=== PATIENT | female | born 1960 | race Two or more races ===

== ENCOUNTER → 2018-09-16 | Outpatient (CLI) | payer OTHER | LOC: M RAD 10:05 | DX: M51.27 Other intervertebral disc displacement, lumbosacral region (principal); M48.061 Spinal stenosis, lumbar region without neurogenic claudication; M51.26 Other intervertebral disc displacement, lumbar region | CPT/HCPCS: 72148 ==

== ENCOUNTER → 2019-05-08 | Outpatient (REF) ==
--- NOTE | 2019-05-08 15:14 | REP ---
LUMBOSACRAL SPINE, AP AND LATERAL: AP and lateral views of the lumbosacral spine performed. There is no compression fracture. There is slight anterior listhesis of L4 on L5 due to posterior facet arthropathy. There is mild diffuse spurring. There is very mild disc space narrowing and subchondral sclerosis at L4-5. There is sclerosis and spurring at the posterior facet joints of L3-4, L4-5, and L5-S1. Posterior elements are intact. IMPRESSION: Degenerative changes as above. Electronically Signed by Thomas Molina MD 05/08/2019 04:43 P
== END ==
LOC: M SMT 13:17
PROVIDERS: ATTEND Internal Medicine
DX: M51.36 Other intervertebral disc degeneration, lumbar region (principal)

== ENCOUNTER → 2020-01-28 | Outpatient (CLI) | payer OTHER ==
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
== END ==
LOC: M PAIN 11:00
PROVIDERS: ATTEND Nurse Practitioner Family
DX: M46.1 Sacroiliitis, not elsewhere classified (principal); G89.29 Other chronic pain; E78.5 Hyperlipidemia, unspecified; E03.9 Hypothyroidism, unspecified; G47.30 Sleep apnea, unspecified; E55.9 Vitamin D deficiency, unspecified; Z87.891 Personal history of nicotine dependence; Z88.8 Allergy status to other drugs, medicaments and biological substances; Z91.040 Latex allergy status; E66.01 Morbid (severe) obesity due to excess calories; Z68.42 Body mass index [BMI] 45.0-49.9, adult; Z79.899 Other long term (current) drug therapy

== ENCOUNTER → 2020-02-07 | Outpatient (CLI) | payer OTHER ==
--- NOTE | 2020-02-07 18:55 | REPVR ---
PROCEDURE INFORMATION: Exam: MR Lumbar Spine Without Contrast. Exam date and time: 02/07/2020 6:14 PM Age: 59 years old Clinical indication: Low back pain; Additional info: Sacroiliitis, not elsewhere classified TECHNIQUE: Imaging protocol: Multiplanar magnetic resonance images of the lumbar spine without intravenous contrast. COMPARISON: MRI-Spine, L.S. without con 09/16/2018 10:22 AM FINDINGS: Vertebral body heights are maintained. No abnormal marrow signal. No cord compression. No abnormal cord signal. 0.4 cm grade 1 anterolisthesis of L4 on L5. Conus medullaris terminates at the L1 level. Paravertebral soft tissues are unremarkable. L1-L2: No significant canal or foraminal narrowing. L2-L3: No significant canal or foraminal narrowing. L3-L4: No significant canal or foraminal narrowing. L4-L5: Broad-based disc bulge and facet hypertrophy causes moderate canal narrowing with crowding of the cauda equina. Moderate right and moderate to severe left foraminal narrowing. L5-S1: Broad-based disc bulge and facet hypertrophy causes moderate canal narrowing. Mild right and moderate left foraminal narrowing. IMPRESSION: 1. No acute findings in the lumbar spine. 2. Multilevel spondylotic changes of the lumbar spine, as above. 3. Sacroiliac joints not adequately imaged on MRI lumbar spine. Given provided history of low back pain and sacroiliitis, recommend further evaluation with dedicated CT pelvis. Electronically signed by: Lalo Kern On 02/07/2020 18:54:52 PM
== END ==
LOC: M RAD 17:16
PROVIDERS: ATTEND Nurse Practitioner Family
DX: M46.1 Sacroiliitis, not elsewhere classified (principal)

== ENCOUNTER → 2020-02-14 | Outpatient (CLI) | payer OTHER ==
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
== END ==
LOC: M PAIN 10:45
PROVIDERS: ATTEND Nurse Practitioner Family
DX: M47.817 Spondylosis without myelopathy or radiculopathy, lumbosacral region (principal)

== ENCOUNTER → 2020-02-28 | Outpatient (CLI) | payer OTHER ==
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
== END ==
LOC: M PAIN 09:00
PROVIDERS: ATTEND Nurse Practitioner Family
DX: M47.817 Spondylosis without myelopathy or radiculopathy, lumbosacral region (principal); E03.9 Hypothyroidism, unspecified; E78.5 Hyperlipidemia, unspecified; Z79.899 Other long term (current) drug therapy; Z87.891 Personal history of nicotine dependence; Z88.8 Allergy status to other drugs, medicaments and biological substances; Z91.040 Latex allergy status

== ENCOUNTER → 2020-03-28 | Outpatient (CLI) | payer OTHER | LOC: M LABSMTC 11:49 | PROVIDERS: ATTEND Anesthesiology | DX: Z11.59 Encounter for screening for other viral diseases (principal); Z20.828 Contact with and (suspected) exposure to other viral communicable diseases ==

== ENCOUNTER → 2020-03-31 | Outpatient (CLI) | payer OTHER ==
[~2020-03-31] MED LIST: BUPIVACAINE HCL 0.25% 30ML VIAL As Ordered ONE; ISOVUE-M 300 61% 15ML VIAL As Ordered ONE; LIDOCAINE 1% SDV 30ML VIAL As Ordered ONE
--- NOTE | 2020-03-31 11:16 | REP ---
Partial lumbar spine series: Two views . History: Injection procedure for pain. 56 seconds of fluoroscopy time is reported. Findings: A sequence of two fluoroscopically obtained last image hold procedural spot radiographs of the lumbar spine document needle position and contrast injection associated with injection procedure. Electronically Signed by Cam Boyd MD 03/31/2020 11:08 A
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
== END ==
LOC: M PAIN 09:45
PROVIDERS: ATTEND Anesthesiology
DX: M47.816 Spondylosis without myelopathy or radiculopathy, lumbar region (principal); M47.817 Spondylosis without myelopathy or radiculopathy, lumbosacral region; E03.9 Hypothyroidism, unspecified; G47.30 Sleep apnea, unspecified; E55.9 Vitamin D deficiency, unspecified; Z87.891 Personal history of nicotine dependence; Z88.8 Allergy status to other drugs, medicaments and biological substances; Z91.040 Latex allergy status; E66.01 Morbid (severe) obesity due to excess calories; Z68.42 Body mass index [BMI] 45.0-49.9, adult; Z79.899 Other long term (current) drug therapy
CPT/HCPCS: 64493; 64494; Q9967

== ENCOUNTER → 2020-04-17 | Outpatient (CLI) | payer OTHER ==
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
== END ==
LOC: M PAIN 11:30
PROVIDERS: ATTEND Nurse Practitioner Family
DX: M47.817 Spondylosis without myelopathy or radiculopathy, lumbosacral region (principal)

== ENCOUNTER → 2021-01-07 | Outpatient (CLI) | payer OTHER ==
--- NOTE | 2021-01-07 18:31 | REP ---
INDICATION: MENISCUS DERANGEMENT RT KNEE. COMPARISON: None. TECHNIQUE: Coronal and sagittal PD and fat suppressed T2 with axial fat-suppressed T2. FINDINGS: Both the ACL and PCL are grossly intact. A transverse meniscal ligament of Cedillo seen and normal. Some fluid in the intercondylar notch. There is some hyperintense T2 signal posterior to the posterior horn and deep to the capsule the medial meniscus the representing meniscocapsular injury. There is some oblique grade 2 signal posterior horn not definitely extending to an articular surface. Anterior horn was grossly intact. I do not see evidence of a loose body in the medial compartment. There is chondromalacia with grade 2 changes on both sides of the joint. No bone bruise the femoral condyle. Subchondral cystic change in some edema posteriorly in the medial tibial plateau subjacent to the attachment of the PCL. The MCL grossly intact there is no popliteal fossa cyst. Medial patellar retinaculum grossly intact. Trace fluid in the bursa deep to the retinaculum about the medial femoral condyle. Lateral meniscus shows no evidence of a tear. I see no loose body in the lateral joint compartment. Popliteus tendon was unremarkable. Some mild chondromalacia in the lateral compartment grade 1 femoral condyle grade 1-2 tibial plateau. LCL grossly intact. Lateral patellofemoral ligament intact. Some fluid in the bursal recess deep to the ligament. There is chondromalacia patella grade 2 lateral facet, grade 2-3 medial facet. Small amount of fluid in the patellofemoral joint without a significant suprapatellar bursal fluid collection. There is a tiny hypointense focus in that fluid collection about the medial patellofemoral joint seen on axial image 21 and sagittal T2 image 15, likely a small cartilaginous loose body. Tiny patellar subchondral bruise or edema on the lateral articular facet side. Quadriceps and patellar tendons intact there is some prepatellar subcutaneous edema extending along the patellar tendon to the tibial tubercle. Subcutaneous edema seen coral circumferentially about the anterior knee. IMPRESSION: 1. Meniscocapsular injury posterior horn medial meniscus with some grade 2 signal posterior horn not definitely extending to an articular surface. No definite tear or loose body otherwise. 2. Lateral meniscus intact. There is chondromalacia of all 3 compartments as described. 3. Small amount of joint fluid. A suspected small chondral loose body projects in the medial articular facet aspect of the patellofemoral joint. 4. Cruciate ligaments, collateral ligamentous complexes, medial and lateral patellofemoral ligaments all grossly intact. No definite fracture. <Electronically signed by Sebastian Booth > 01/07/21 [id number]
== END ==
LOC: M RAD 16:18
PROVIDERS: ATTEND Family Medicine
DX: M23.331 Other meniscus derangements, other medial meniscus, right knee (principal)

== ENCOUNTER → 2021-01-15 | Outpatient (CLI) | payer OTHER ==
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
== END ==
LOC: M PAIN 13:30
PROVIDERS: ATTEND Nurse Practitioner Family
DX: M47.817 Spondylosis without myelopathy or radiculopathy, lumbosacral region (principal); G89.29 Other chronic pain; E03.9 Hypothyroidism, unspecified; G47.30 Sleep apnea, unspecified; E55.9 Vitamin D deficiency, unspecified; Z87.891 Personal history of nicotine dependence; Z88.8 Allergy status to other drugs, medicaments and biological substances; Z91.040 Latex allergy status; E66.01 Morbid (severe) obesity due to excess calories; Z68.42 Body mass index [BMI] 45.0-49.9, adult; Z79.899 Other long term (current) drug therapy

== ENCOUNTER → 2021-02-26 | Outpatient (CLI) | payer OTHER ==
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
== END ==
LOC: M PAIN 11:15
PROVIDERS: ATTEND Nurse Practitioner Family
DX: M48.062 Spinal stenosis, lumbar region with neurogenic claudication (principal); E03.9 Hypothyroidism, unspecified; G47.30 Sleep apnea, unspecified; E55.9 Vitamin D deficiency, unspecified; Z87.891 Personal history of nicotine dependence; Z88.8 Allergy status to other drugs, medicaments and biological substances; Z91.040 Latex allergy status; E66.01 Morbid (severe) obesity due to excess calories; Z68.42 Body mass index [BMI] 45.0-49.9, adult; Z79.899 Other long term (current) drug therapy

== ENCOUNTER → 2021-03-09 | Outpatient (CLI) | payer OTHER ==
--- NOTE | 2021-03-09 18:01 | REP ---
INDICATION: DORSALGIA, UNSPECIFIED, LAB 1ST THEN XR. COMPARISON: None. TECHNIQUE: Single AP view of the pelvis. FINDINGS: The pelvis and hip joints demonstrate relatively symmetric age-related degenerative changes. Enthesopathy along the pelvic rim is noted. Hip joints demonstrate increased sclerosis to the acetabula with mild joint space narrowing. No acute fracture or dislocation. Surrounding soft tissues are normal. 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 <Electronically signed by Truong Deng > 03/09/21 [id number]
[2021-03-09 19:06] LABS: CPK CREATINE PHOSPHOKINASE 65 U/L (26-192); IRON (FE) 61 UG/DL (50-170); MAGNESIUM LEVEL 2.1 MG/DL (1.8-2.4); PHOSPHORUS LEVEL 3.3 MG/DL (2.5-4.9); RHEUMATOID FACTOR QUANT < 10.0 IU/ML (<15.0)
[2021-03-10 10:39] LABS: VITAMIN B12 LEVEL 779 PG/ML (247-911)
[2021-03-14 00:10] LABS: ANA (HEP2) Positive (.); CYCLIC CITRULLINATED PEPTIDE 6 units (0-19); HLA-B27 Negative (.)
== END ==
LOC: M LAB 17:24
PROVIDERS: ATTEND Internal Medicine
DX: M54.9 Dorsalgia, unspecified (principal)

== ENCOUNTER → 2021-03-12 | Outpatient (CLI) | payer OTHER ==
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
== END ==
LOC: M PAIN 15:15
PROVIDERS: ATTEND Anesthesiology
DX: M79.18 Myalgia, other site (principal); M54.5 Low back pain; E03.9 Hypothyroidism, unspecified; G47.30 Sleep apnea, unspecified; E55.9 Vitamin D deficiency, unspecified; Z87.891 Personal history of nicotine dependence; Z88.8 Allergy status to other drugs, medicaments and biological substances; Z91.040 Latex allergy status; E66.01 Morbid (severe) obesity due to excess calories; Z68.42 Body mass index [BMI] 45.0-49.9, adult; Z79.899 Other long term (current) drug therapy

== ENCOUNTER → 2021-03-26 | Outpatient (CLI) | payer OTHER | LOC: M LABSMTC 11:32 | PROVIDERS: ATTEND Anesthesiology | DX: Z11.52 Encounter for screening for COVID-19 (principal) ==

== ENCOUNTER → 2021-03-31 | Outpatient (CLI) | payer OTHER ==
[~2021-03-31] MED LIST changes: +ASPE16CR TOP; +ATOR1TAB21 PO; +BUPIVACAINE HCL 0.25% 10ML VIAL As Ordered ONE; +DICL1GEL3 TOP; +HYDR-4517 PO; +IBUP80TA PO; -ISOVUE-M 300 61% 15ML VIAL As Ordered ONE; +LEVO150T7 PO; +LEVO25TA5 PO; -LIDOCAINE 1% SDV 30ML VIAL As Ordered ONE; +NORCO, ANEXSIA 5/325MG TABLET (HYDROcodone/ACETAMINOPHEN) As Ordered ONE; +TIZA2TA PO; +TRIAMCINOLONE ACETONIDE SUSP 40 MG/ML VIAL (J3301) As Ordered ONE; +VENL150C43 PO; +VITA50005 PO; +diazePAM 5MG TABLET As Ordered ONE
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
== END ==
LOC: M PAIN 10:40
PROVIDERS: ATTEND Anesthesiology
DX: M79.10 Myalgia, unspecified site (principal); G47.30 Sleep apnea, unspecified; E03.9 Hypothyroidism, unspecified; E55.9 Vitamin D deficiency, unspecified; Z87.891 Personal history of nicotine dependence; Z88.8 Allergy status to other drugs, medicaments and biological substances; Z91.040 Latex allergy status; E66.01 Morbid (severe) obesity due to excess calories; Z68.42 Body mass index [BMI] 45.0-49.9, adult; Z79.899 Other long term (current) drug therapy
CPT/HCPCS: 20552; J3301

== ENCOUNTER 2021-04-04 14:14 | Inpatient (IN) | payer OTHER ==
[~2021-04-04] VITALS: Ht 162.6 cm; Wt 109.2 kg
[2021-04-04] MEDS ORDERED: TIZA2TA PO (14:51)
[2021-04-04] MEDS ORDERED: LEVO150T7 PO (14:51)
[2021-04-04] MEDS ORDERED: HYDR-4517 PO (14:51)
[2021-04-04] MEDS ORDERED: DICL1GEL3 TOP (14:51)
[2021-04-04] MEDS ORDERED: LEVO25TA5 PO (14:51)
[2021-04-04] MEDS ORDERED: VENL150C43 PO (14:51)
[2021-04-04] MEDS ORDERED: IBUP80TA PO (14:51)
[2021-04-04] MEDS ORDERED: ATOR1TAB21 PO (14:51)
[2021-04-04] MEDS ORDERED: ASPE16CR TOP (14:51)
[2021-04-04] MEDS ORDERED: VITA50005 PO (14:51)
[2021-04-04] MEDS ORDERED: NS 1,000 ML IV ONE ×2 (15:15→20:30)
[2021-04-04] MEDS ORDERED: ACETAMINOPHEN 500 MG TAB PO ONE (15:40)
--- NOTE | 2021-04-04 15:55 | REP ---
INDICATION: fever, cough. COMPARISON: None. TECHNIQUE: Single portable AP view of the chest was performed. FINDINGS: There is cardiomegaly. There is vascular congestion. There are diffuse bilateral infiltrates. The findings are most consistent with CHF and pulmonary edema. Superimposed pneumonia is not excluded. There are degenerative changes of the spine. IMPRESSION: Cardiomegaly and vascular congestion. Diffuse bilateral infiltrates are presenting pulmonary edema and/ or pneumonic infiltrate. <Electronically signed by Thomas Molina > 04/04/21 0473
[2021-04-04 16:27] LABS: HEMATOCRIT 46.9 % (36.0-47.0); HEMOGLOBIN 15.5 g/dl (12.0-15.5); MEAN CORPUSCULAR HEMOGLOBIN 27.2 pg (27.0-33.0); MEAN CORPUSCULAR VOLUME 82.3 fl (80.0-96.0); PLATELET COUNT, AUTOMATED 141 10^3/uL (150-450); WHITE BLOOD COUNT 7.4 10^3/uL (4.0-10.0)
[2021-04-04 16:39] LABS: INR 1.13; PROTHROMBIN TIME 14.8 SECONDS (12.5-14.3)
[2021-04-04 16:40] LABS: PARTIAL THROMBOPLASTIN TIME 32.7 SECONDS (24.2-38.5)
[2021-04-04 16:42] LABS: D-DIMER QUANT 2940.17 ng/ml (<500)
[2021-04-04 16:55] LABS: ALBUMIN 2.6 GM/DL (3.2-5.2); ALT/SGPT 31 U/L (12-78); BILIRUBIN,DIRECT 0.2 MG/DL (0.0-0.2); BILIRUBIN,TOTAL 0.7 MG/DL (0.2-1.0); BLOOD UREA NITROGEN 22 MG/DL (7-18); CALCIUM LEVEL 8.3 MG/DL (8.8-10.2); CARBON DIOXIDE LEVEL 26 MEQ/L (21-32); CHLORIDE LEVEL 100 MEQ/L (98-107); CK-MB VALUE MASS < 1.0 NG/ML (<3.6); CPK CREATINE PHOSPHOKINASE 124 U/L (26-192); CREATININE FOR GFR 0.89 MG/DL (0.55-1.30); FERRITIN 1466 NG/ML (8-252); GLOMERULAR FILTRATION RATE > 60.0 (>45); GLUCOSE, FASTING 106 MG/DL (70-100); LDH LACTATE DEHYDROGENASE 737 U/L (84-246); LIPASE 433 U/L (73-393); MB/CK RELATIVE INDEX 0.81 (< OR =4); NT-PRO BNP 735 PG/ML (<125); POTASSIUM SERUM 4.1 MEQ/L (3.5-5.1); SODIUM LEVEL 133 MEQ/L (136-145); TOTAL PROTEIN 7.1 GM/DL (6.4-8.2); TROPONIN I < 0.02 NG/ML (< 0.10)
[2021-04-04] MEDS ORDERED: AZITHROMYCIN INJ 500 MG, VIAL MATE ADAPTER 1 EACH in NS 250 ML IV ONE (17:00)
[2021-04-04] MEDS ORDERED: cefTRIAXone SOD 2 GM in D5W MINI-BAG PLUS 50 ML IV ONE (17:00)
[2021-04-04] MEDS ORDERED: ISOVUE-370 76% 100ML VIAL As Ordered ONE (17:06)
[2021-04-04 17:07] LABS: LYMPHOCYTES 12 % (16-44); MONOCYTES 3 % (0-5); NEUTROPHILS 85 % (28-66)
[2021-04-04 17:09] LABS: PLATELET ESTIMATE DECREASED (NORMAL)
--- NOTE | 2021-04-04 17:59 | REPVR ---
PROCEDURE INFORMATION: Exam: CT Lumbar Spine Without Contrast Exam date and time: 04/04/2021 5:21 PM Age: 61 years old Clinical indication: Low back pain and sciatica; Additional info: Chronic low back pain/sciatica, reported urinary incontinenc TECHNIQUE: Imaging protocol: Computed tomography images of the lumbar spine without contrast. Radiation optimization: All CT scans at this facility use at least one of these dose optimization techniques: automated exposure control; mA and/or kV adjustment per patient size (includes targeted exams where dose is matched to clinical indication); or iterative reconstruction. COMPARISON: MRI-Spine, L.S. without con 02/07/2020 5:41 PM FINDINGS: Vertebrae: Degenerative disc disease and facet arthrosis throughout the lumbar spine. No fracture. L1-L2: No significant disc protrusion. No severe spinal canal stenosis. No significant neural foraminal narrowing. L2-L3: Mild degenerative disc disease and facet arthrosis. No disc herniation or spinal stenosis identified. L3-L4: Posterior broad-based disc protrusion and bilateral facet hypertrophy resulting in mild spinal stenosis. L4-L5: Grade 1 anterolisthesis of L4. Posterior broad-based disc protrusion and bilateral facet hypertrophy. Mild to moderate spinal stenosis. Bilateral lateral recess stenosis. L5-S1: Mild degenerative disc disease and facet arthrosis. No disc herniation or spinal stenosis identified. Lungs: Patchy bibasilar lung opacities, indeterminate. Vasculature: Mild atherosclerosis of the abdominal aorta and iliac arteries. No aneurysm. Soft tissues: Unremarkable. IMPRESSION: 1. Patchy bibasilar lung opacities, indeterminate. 2. Degenerative spondylosis of the lumbar spine. 3. Mild spinal stenosis at L3-L4 and mild to moderate spinal stenosis at L4-L5. If there is a continued clinical concern for disc herniation or other spinal canal abnormality then consider further evaluation with MRI. Electronically signed by: Wyatt Cifuentes On 04/04/2021 17:58:46 PM
--- NOTE | 2021-04-04 18:07 | REPVR ---
PROCEDURE INFORMATION: Exam: CTA Chest With Contrast Exam date and time: 04/04/2021 5:21 PM Age: 61 years old Clinical indication: Other: Positive d-dimer R/O pe, positive covid TECHNIQUE: Imaging protocol: Computed tomographic angiography of the chest with contrast. 3D rendering (Not supervised by radiologist): MIP and/or 3D reconstructed images were created by the technologist. Radiation optimization: All CT scans at this facility use at least one of these dose optimization techniques: automated exposure control; mA and/or kV adjustment per patient size (includes targeted exams where dose is matched to clinical indication); or iterative reconstruction. Contrast material: ISOVUE 370; Contrast volume: 75 ml; Contrast route: INTRAVENOUS (IV); COMPARISON: [facility] PORTABLE CHEST X-RAY 04/04/2021 3:44 PM FINDINGS: Limitations: Evaluation of the peripheral pulmonary vasculature is suboptimal secondary to motion induced image degradation. Pulmonary arteries: No filling defects are identified within the main pulmonary trunk, right or left main pulmonary arteries or central lobar arteries to indicate pulmonary embolus. Aorta: Mild atherosclerosis of the thoracic aorta without aneurysm or dissection. Lungs: There are peripheral bilateral ground-glass opacities with areas of consolidation and interlobular lines which are commonly reported imaging features of COVID-19 pneumonia. Other underlying parenchymal lesions are not excluded. Follow-up imaging is recommended to confirm resolution. Pleural spaces: Unremarkable. No pneumothorax. No pleural effusion. Heart: Mild coronary atherosclerosis. Lymph nodes: Unremarkable. No enlarged lymph nodes. Bones/joints: Degenerative spondylosis of the thoracic spine. No fracture. Soft tissues: Unremarkable. IMPRESSION: 1. No pulmonary embolism identified within the main pulmonary trunk, right or left main pulmonary arteries or central lobar arteries. 2. Commonly reported imaging features of COVID-19 pneumonia are present. Other processes such as influenza pneumonia and organizing pneumonia, as can be seen with drug toxicity and connective tissue disease, can cause a similar imaging pattern. Other underlying parenchymal lesions are not excluded. Follow-up imaging is recommended to confirm resolution. REFERENCES: [place] Ordonez et al., Radiological Society of [place] Expert Consensus Statement on Reporting Chest CT Findings Related to COVID-19. Endorsed by the Society of Thoracic Radiology, the [employer], and [employer]NA. Published February 13, 2020. Electronically signed by: Wyatt Cifuentes On 04/04/2021 18:07:10 PM
[2021-04-04] MEDS ORDERED: PERCOCET 5MG/325MG TAB PO ONE (18:50)
--- NOTE | 2021-04-04 20:11 | REPVR ---
PROCEDURE INFORMATION: Exam: MR Lumbar Spine Without Contrast Exam date and time: 04/04/2021 7:29 PM Age: 61 years old Clinical indication: Lumbago and weakness; Low back pain and other: Incontinence; Additional info: Chronic back pain, reported incontinence TECHNIQUE: Imaging protocol: Multiplanar magnetic resonance images of the lumbar spine without intravenous contrast. COMPARISON: MRI-Spine, L.S. without con 02/07/2020 5:41 PM FINDINGS: Vertebrae: Hemangioma within the L1 vertebral body. No fracture. Spinal cord: The lower thoracic cord is unremarkable and the conus terminates at the level of the L1 inferior endplate. L1-L2: No significant disc disease. No significant spinal canal stenosis. No neural foraminal stenosis. L2-L3: No significant disc disease. No significant spinal canal stenosis. No neural foraminal stenosis. L3-L4: Mild posterior broad-based disc protrusion. Bilateral facet hypertrophy and ligamentum flavum thickening. No focal disc protrusion or nerve root impingement. Mild spinal stenosis. Bilateral lateral recess stenosis. L4-L5: Grade 1 anterolisthesis of L4. Mild posterior broad-based disc protrusion. Bilateral facet hypertrophy and ligamentum flavum thickening. No focal disc protrusion. Mild spinal stenosis. Bilateral lateral recess stenosis. L5-S1: No disc herniation. Bilateral facet hypertrophy, worse on the right. No nerve root impingement or spinal stenosis. Soft tissues: Unremarkable. IMPRESSION: Degenerative spondylosis of the lumbar spine as described above. Electronically signed by: Wyatt Cifuentes On 04/04/2021 20:10:46 PM
[2021-04-04] MEDS ORDERED: LIDOCAINE 4% CREAM 5GM (LMX4) TOP PRN (20:30)
[2021-04-04] MEDS ORDERED: DICLOFENAC EPOLAMINE 1.3 % PATCH TOP PRN (20:30)
[2021-04-04] MEDS ORDERED: ONDANSETRON 4 MG TAB PO PRN (20:30)
[2021-04-04] MEDS ORDERED: PILL CUTTER 1 EACH XX PRN (21:50)
--- NOTE | 2021-04-04 21:51 | HPEPDOC ---
[facility] Medical History & Physical Date of Admission April 04, 2021 Date of Service: April 04, 2021 Attending Physician: NURA PÉREZ MD History and Physical CHIEF COMPLAINT: [61 y/o female with a cc of extreme fatigue x1 week] HISTORY OF PRESENT ILLNESS: [This is a 61 y/o female with a pmh of chronic danny k/leg pain, hld, hypothyroidism and ced who presents to the ED after developing acute onset weakness that has gradually worsened over one week. patient states that she started to feel ill about a week ago with general malaise and fatigue that has gotten steadily worse. Over the course of the past week, she has subsequently developed some mild sob, cough, fevers and chills. Patient also states that she has had episodes of urinary incontinence without burning or hematuria. This is new for patient and was concerning. Patient states that she "feels terrible." Patient also complains of continued lower back pain that she states is no worse today than it has been over the past few weeks but is still severe in nature. Patient recently underwent corticosteroid joint injections in her spine with pain management. Patient denies chest pain, hemoptysis, cough with sputum, n/v/d/c, calf pain, peripheral edema, rash. Patient found to be COVID19 + in our ed as well as have evidence of pneumonia/vascular congestion on xray, and have positive UA] PAST MEDICAL HISTORY: 1. [See HPI PAST SURGICAL HISTORY: 1. [Extensive left lower leg reconstruction]. SOCIAL HISTORY: Tobacco use:[Denies] ETOH: [Denies] Illicit drug use: [denies] FAMILY HISTORY: Reviewed - none pertinent ALLERGIES: Please see below. REVIEW OF SYSTEMS: CONSTITUTIONAL: [See HPI]. HEENT: [See HPI]. CARDIOVASCULAR: [See HPI]. RESPIRATORY: [See HPI]. GASTROINTESTINAL: [See HPI]. GENITOURINARY: [See HPI]. SKIN: [Denies rash]. MUSCULOSKELETAL: [See HPI]. NEUROLOGICAL: [Denies paresthesias]. ENDOCRINE: [Denies hx of DM]. HEMATOLOGIC/LYMPHATIC: [Denies easy bruising]. HOME MEDICATIONS: Please see below. PHYSICAL EXAMINATION: VITAL SIGNS: Please see below GENERAL APPEARANCE: [This is an obese 61 y/o female. She is laying in bed and appears to have mild increased work of breathing]. HEENT: [No mass or lesion. EOMI. No scleral icterus, conjunctival erythema. Nares patent. Oral mucosa dry without erythema.]. CARDIOVASCULAR: [Regular rate, rhythm. No murmurs, rubs gallops]. LUNGS: [Decreased breath sounds b/l]. ABDOMEN: [Soft, nontender]. MUSCULOSKELETAL: [No joint deformity]. EXTREMITIES: [No peripheral edema noted. No overlying skin changes. Pulses intact.]. NEUROLOGICAL: [Sensation intact. Speech clear. A+Ox3. No focal deficits]. PSYCHIATRIC: [Mood appropriate. Flat affect.]. LABORATORY DATA: See below. IMAGING: [Chest xray: FINDINGS: There is cardiomegaly. There is vascular congestion. There are diffuse bilateral infiltrates. The findings are most consistent with CHF and pulmonary edema. Superimposed pneumonia is not excluded. There are degenerative changes of the spine. IMPRESSION: Cardiomegaly and vascular congestion. Diffuse bilateral infiltrates are presenting pulmonary edema and/ or pneumonic infiltrate. Lumbar spine CT: FINDINGS: Vertebrae: Degenerative disc disease and facet arthrosis throughout the lumbar spine. No fracture. L1-L2: No significant disc protrusion. No severe spinal canal stenosis. No significant neural foraminal narrowing. L2-L3: Mild degenerative disc disease and facet arthrosis. No disc herniation or spinal stenosis identified. L3-L4: Posterior broad-based disc protrusion and bilateral facet hypertrophy resulting in mild spinal stenosis. L4-L5: Grade 1 anterolisthesis of L4. Posterior broad-based disc protrusion and bilateral facet hypertrophy. Mild to moderate spinal stenosis. Bilateral lateral recess stenosis. L5-S1: Mild degenerative disc disease and facet arthrosis. No disc herniation or spinal stenosis identified. Lungs: Patchy bibasilar lung opacities, indeterminate. Vasculature: Mild atherosclerosis of the abdominal aorta and iliac arteries. No aneurysm. Soft tissues: Unremarkable. IMPRESSION: 1. Patchy bibasilar lung opacities, indeterminate. 2. Degenerative spondylosis of the lumbar spine. 3. Mild spinal stenosis at L3-L4 and mild to moderate spinal stenosis at L4-L5. If there is a continued clinical concern for disc herniation or other spinal canal abnormality then consider further evaluation with MRI. CT angio chest: FINDINGS: Limitations: Evaluation of the peripheral pulmonary vasculature is suboptimal secondary to motion induced image degradation. Pulmonary arteries: No filling defects are identified within the main pulmonary trunk, right or left main pulmonary arteries or central lobar arteries to indicate pulmonary embolus. Aorta: Mild atherosclerosis of the thoracic aorta without aneurysm or dissection. Lungs: There are peripheral bilateral ground-glass opacities with areas of consolidation and interlobular lines which are commonly reported imaging features of COVID-19 pneumonia. Other underlying parenchymal lesions are not excluded. Follow-up imaging is recommended to confirm resolution. Pleural spaces: Unremarkable. No pneumothorax. No pleural effusion. Heart: Mild coronary atherosclerosis. Lymph nodes: Unremarkable. No enlarged lymph nodes. Bones/joints: Degenerative spondylosis of the thoracic spine. No fracture. Soft tissues: Unremarkable. IMPRESSION: 1. No pulmonary embolism identified within the main pulmonary trunk, right or left main pulmonary arteries or central lobar arteries. 2. Commonly reported imaging features of COVID-19 pneumonia are present. Other processes such as influenza pneumonia and organizing pneumonia, as can be seen with drug toxicity and connective tissue disease, can cause a similar imaging pattern. Other underlying parenchymal lesions are not excluded. Follow-up imaging is recommended to confirm resolution. MRI lumbar spine: FINDINGS: Vertebrae: Hemangioma within the L1 vertebral body. No fracture. Spinal cord: The lower thoracic cord is unremarkable and the conus terminates at the level of the L1 inferior endplate. L1-L2: No significant disc disease. No significant spinal canal stenosis. No neural foraminal stenosis. L2-L3: No significant disc disease. No significant spinal canal stenosis. No neural foraminal stenosis. L3-L4: Mild posterior broad-based disc protrusion. Bilateral facet hypertrophy and ligamentum flavum thickening. No focal disc protrusion or nerve root impingement. Mild spinal stenosis. Bilateral lateral recess stenosis. L4-L5: Grade 1 anterolisthesis of L4. Mild posterior broad-based disc protrusion. Bilateral facet hypertrophy and ligamentum flavum thickening. No focal disc protrusion. Mild spinal stenosis. Bilateral lateral recess stenosis. L5-S1: No disc herniation. Bilateral facet hypertrophy, worse on the right. No nerve root impingement or spinal stenosis. Soft tissues: Unremarkable. IMPRESSION: Degenerative spondylosis of the lumbar spine as described above. ] MICROBIOLOGY: Please see below. ASSESSMENT: [This is a 61 y/o female with a pmh of chronic back/leg pain, hld, hypothyroidism and ced who presents to the ED after developing acute onset weakness that has gradually worsened over one week. Patient found to be covid+ in our emergency department. Patient was also worked up in our ed for possible spinal syndrome due to severe back pain and urinary incontinence, but this was found to be negative.]. . PLAN: 1. [COVID 19 - Patient meets sepsis criteria upon presentation with fever (103.4 max), hypoxia (88% on RA at rest) and present source of infection. - Will begin remdesevir, decadron iv daily - Patient received one dose of azithromycin and rocephin, 1L saline bolus in the ed - Will continue ivf on the floor. patient likely dehydrated due to recent poor oral intake - trend inflammatory markers - provide supplemental o2 with goal of sat >90% - combivent, incentive spirometry for sx relief - tylenol/ibuprofen for fevers - admit to med surg under obs 2. UTI - Patient had positive UA. Denies dysuria, but admits to incontinence. Incontin ence likely a symptoms of uti in this case. - Patient received 2g ceftriaxone in the ED 3. CED - CPAP nightly 4. Chronic pain - Continue percocet, ibuprofen, diclofenac, lidocaine, zanaflex 5. HLD - continue lipitor 6. Hypothyroidism - continue levothyroxine 7. Depression - continue effexor DVT prophylaxis - Lovenox ordered]. Vital Signs Vital Signs Date Time Temp Pulse Resp B/P (MAP) Pulse Ox O2 Delivery O2 Flow Rate FiO2 04/04/21 20:23 97.5 04/04/21 20:00 20 Room Air 04/04/21 19:02 55 121/55 (77) 91 1.0 Laboratory Data Labs 24H Laboratory Tests 2 04/04/21 16:11: Neutrophils (%) (Auto) , Nucleated Red Blood Cells % (auto) 0.0, Neutrophils 85H, Lymphocytes (Manual) 12L, Monocytes (Manual) 3, Platelet Estimate DECREASED, Prothrombin Time 14.8H, Prothromb Time International Ratio 1.13, Activated Partial Thromboplast Time 32.7, D-Dimer, Quantitative 2940.17H, Anion Gap 7L, Glomerular Filtration Rate > 60.0, Lactic Acid Level 1.9, Calcium Level 8.3L, Ferritin 1466H, Total Bilirubin 0.7, Direct Bilirubin 0.2, Aspartate Amino Transf (AST/SGOT) 65H, Alanine Aminotransferase (ALT/SGPT) 31, Alkaline Phosphatase 73, Lactate Dehydrogenase 737H, Total Creatine Kinase 124, Creatine Kinase MB < 1.0, Creatine Kinase MB Relative Index 0.81, Troponin I < 0.02, C-Reactive Protein, Quantitative 15.20H, ES-Yef-J-Type Natriuretic Peptide 735H, Total Protein 7.1, Albumin 2.6L, Albumin/Globulin Ratio 0.6L, Lipase 433H 04/04/21 17:41: Urine Color YELLOW, Urine Appearance CLOUDYH, Urine pH 6.0, Urine Specific [place] 1.032, Urine Protein 3+H, Urine Glucose (UA) NEGATIVE, Urine Ketones NEGATIVE, Urine Blood 1+H, Urine Nitrite POSITIVEH, Urine Bilirubin NEGATIVE, Urine Urobilinogen 0.2, Urine Leukocyte Esterase NEGATIVE, Urine WBC (Auto) 28H, Urine RBC (Auto) 3, Urine Hyaline Casts (Auto) 8, Urine Bacteria (Auto) 2+H, Urine Squamous Epithelial Cells 4, Urine Transitional Epithelial Cells <1, Urine Mucus (Auto) LARGE, Urine Sperm (Auto) CBC/BMP Laboratory Tests 04/04/21 16:11 Microbiology Microbiology 04/04/21 Urine Culture, Received Pending 04/04/21 Blood Culture, Received Pending 04/04/21 Blood Culture, Received Pending 04/04/21 Respiratory Virus Panel (PCR) ([facility]) - Final, Complete SARS-CoV-2 (COVID 19) Home Medications Scheduled Atorvastatin Calcium (Atorvastatin Calcium) 20 Mg Tablet, 20 MG PO DAILY Ergocalciferol (Vitamin D2) (Vitamin D2) 50,000 Units Cap, 1 CAP PO 1XWK SUNDAYS Levothyroxine Sodium (Levothyroxine Sodium) 150 Mcg Tablet, 150 MCG PO DAILY Levothyroxine Sodium (Levothyroxine Sodium) 25 Mcg Tablet, 25 MCG PO DAILY Venlafaxine HCl (Venlafaxine HCl ER) 150 Mg Cap.er.24h, 150 MG PO DAILY Scheduled PRN Diclofenac Sodium (Diclofenac Sodium) 1% 100GM Gel..gram., 1 DOSE TOP PRN PRN for PAIN USE FOR KNEE PAIN Hydrocodone/Acetaminophen (Hydrocodone-Acetamin 10-325 mg) 1 Each Tablet, 1 TAB PO QID PRN for PAIN Ibuprofen (Ibuprofen) 800 Mg Tablet, 800 MG PO TID PRN for PAIN Lidocaine HCl (Aspercreme) 4% Cream..g., 1 DOSE TOP PRN PRN for PAIN Tizanidine HCl (Tizanidine HCl) 2 Mg Tablet, 2 MG PO BID PRN for MUSCLE SPASMS Allergies Coded Allergies: No Known Allergies (Unverified , 04/04/21) A-FIB/CHADSVASC A-FIB History Current/History of A-Fib/PAF?: No Attending Note Attending Note time of service 906pm Ms. Felder is a 61 yr old w hypothyroidism, CED, obesity (which complicates her care) & sciatica who presented w c/o URI symptoms & weakness and will be admitted for #acute hypoxemic vapotherm dependent respiratory failure #viral sepsis # COVID 19 Pneumonia # Class 3 obesity We will treat her for the above & check her A1C. She should be referred to a Bariatric surgeon on an out patient basis. rest per MARY JANE Godfrey's H&P GEORGI GODFREY April 04, 2021 21:51 NURA PÉREZ MD April 04, 2021 23:19
[2021-04-04] MEDS ORDERED: REMDESIVIR 200 MG in NS 250 ML IV ONE (22:00)
[2021-04-04 22:10] VITALS: BP 103/51; O2SAT 92
[2021-04-04 23:00] VITALS: O2SAT 94
[2021-04-05] VITALS (18 sets, daily range): BP systolic 93–155; BP diastolic 52–90; O2SAT 92–95
[2021-04-05] MEDS ORDERED: SODIUM CHLORIDE 0.9% INJ 10 ML SYR IV ONE
[2021-04-05] MEDS: LEVOTHYROXINE 25MCG TABLET (0.025MG) PO SCH (05:54)
[2021-04-05] MEDS: LEVOTHYROXINE 150MCG TABLET (0.15MG) PO SCH (05:54)
[2021-04-05 07:04] LABS: HEMATOCRIT 44.6 % (36.0-47.0); HEMOGLOBIN 14.8 g/dl (12.0-15.5); MEAN CORPUSCULAR HEMOGLOBIN 27.8 pg (27.0-33.0); MEAN CORPUSCULAR HGB CONC 33.2 g/dl (32.0-36.5); MEAN CORPUSCULAR VOLUME 83.7 fl (80.0-96.0); PLATELET COUNT, AUTOMATED 152 10^3/uL (150-450); RED BLOOD COUNT 5.33 10^6/uL (4.00-5.40); WHITE BLOOD COUNT 6.4 10^3/uL (4.0-10.0)
[2021-04-05] MEDS: PERCOCET 5MG/325MG TAB PO PRN ×2 (07:04→20:02)
[2021-04-05] MEDS: ENOXAPARIN 60MG/0.6ML SYRINGE (J1650 PER 10MG) SC SCH ×2 (07:04→17:10)
[2021-04-05 07:22] LABS: HEMOGLOBIN A1c 6.5 %
[2021-04-05 07:27] LABS: BLOOD UREA NITROGEN 20 MG/DL (7-18); CARBON DIOXIDE LEVEL 25 MEQ/L (21-32); CHLORIDE LEVEL 102 MEQ/L (98-107); GLOMERULAR FILTRATION RATE > 60.0 (>45); GLUCOSE, FASTING 108 MG/DL (70-100); POTASSIUM SERUM 4.1 MEQ/L (3.5-5.1); SODIUM LEVEL 136 MEQ/L (136-145)
--- NOTE | 2021-04-05 07:55 | ECGEPIP ---
[facility] - ED Test Date: 2021-04-04 Pat Name: JOY CASTELLON Department: Room: - Gender: Female Carroter: LR : 1960 Requested By: LINDY Ramos PA-C Order Number: [id number] Reading MD: Ni Lakhani Measurements Intervals [place] Rate: 69 P: [place]: 130 QRS: 15 QRSD: 74 T: 35 QT: 378 QTc: 405 Interpretive Statements Normal sinus rhythm Nonspecific ST and T wave abnormality No prior Electronically Signed on 04-05-2021 7:55:39 EDT by Ni Lakhani
[2021-04-05] MEDS: ATORVASTATIN 20 MG TAB PO SCH (08:19)
[2021-04-05] MEDS: dexameTHASONE 4 MG/ML 1ML VIAL (J1100 PER 1MG) IV SCH (08:19)
[2021-04-05] MEDS: VENLAFAXINE **XR** 75MG CAPSULE PO SCH (08:19)
[2021-04-05] MEDS: tiZANidine 4 MG TAB PO PRN ×2 (08:25→20:03)
[2021-04-05] MEDS: VITAMIN D 50,000 UNITS CAPSULE (ERGOCALCIFEROL 1.25MG) PO SCH (08:25)
[2021-04-05] MEDS ORDERED: ENOXAPARIN 40MG/0.4ML SYRINGE (J1650 PER 10MG) SC SCH (09:00)
[2021-04-05 09:24] LABS: ALBUMIN 2.4 GM/DL (3.2-5.2); ALT/SGPT 25 U/L (12-78); BILIRUBIN,DIRECT 0.3 MG/DL (0.0-0.2); BILIRUBIN,TOTAL 0.5 MG/DL (0.2-1.0); FERRITIN 1593 NG/ML (8-252); LDH LACTATE DEHYDROGENASE 763 U/L (84-246); NT-PRO BNP 470 PG/ML (<125); TOTAL PROTEIN 6.3 GM/DL (6.4-8.2)
[2021-04-05 09:27] LABS: INR 1.15
[2021-04-05 09:28] LABS: PARTIAL THROMBOPLASTIN TIME 33.9 SECONDS (24.2-38.5)
[2021-04-05 09:30] LABS: D-DIMER QUANT 3186.69 ng/ml (<500)
[2021-04-05 09:30] LABS: ABG BASE EXCESS -2.9 (-2.0-2.0); ABG HCO3 20.1 MEQ/L (22.0-26.0); ABG O2 SATURATION 99.2 % (95.0-99.0); ABG PARTIAL PRESSURE CO2 30.3 mmHg (35.0-45.0); ABG PARTIAL PRESSURE O2 207.8 mmHg (75.0-100.0); ABG STANDARD HCO3 22.1 MEQ/L (22.0-26.0); ABG pH (ARTERIAL) 7.439 UNITS (7.350-7.450)
[2021-04-05 09:44] LABS: ERYTHROCYTE SEDIMENTATION RATE 62 mm/hr (0-30)
[2021-04-05] MEDS ORDERED: FUROSEMIDE 40MG/4ML VIAL (J1940) IV ONE (10:00)
[2021-04-05] MEDS: cefTRIAXone SOD 1 GM in D5W MINI-BAG PLUS 50 ML IV SCH (12:41)
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
--- NOTE | 2021-04-05 16:06 | IPN ---
PROGRESS NOTE DATE: 04/05/2021 SUBJECTIVE: At 6:00 a.m. this morning, patient became much more hypoxic, now requiring Vapotherm, was saturating 91% and 90%. Currently, FiO2 100% with 40 liters flow rate. Patient is being transferred to intensive care unit (ICU) due to worsening hypoxemia, most likely early acute respiratory distress syndrome (ARDS) secondary to coronavirus infection. She denies any chest pain, pressure, tightness, nausea, vomiting, loss of taste, headache or diarrhea. She does complain of dyspnea on exertion, even with just walking from the bedroom to the bathroom, with a productive cough, white sputum. PHYSICAL EXAMINATION: VITAL SIGNS: Temperature 98.7, pulse 58, respiratory rate 24, blood pressure 141/58, 91% on Vapotherm 100% FiO2, flow rate of 40, saturating 91%. GENERAL: Patient is in distress. She is using her respiratory accessory muscles with seven word conversational dyspnea. HEENT: No tracheal deviation. Moist mucous membranes. LUNGS: Diminished. Bilateral crackles. ABDOMEN: Obese. Soft, nontender, nondistended. EXTREMITIES: Trace bilateral lower extremity edema. LABORATORY DATA: Reviewed complete blood count, metabolic panel, inflammatory markers. CURRENT HOSPITAL MEDICATIONS: - Remdesivir - ceftriaxone - vitamin D - Lipitor - dexamethasone - levothyroxine - Lovenox - Combivent - Zofran - tizanidine - lidocaine - Percocet - Flector - ibuprofen IMAGING STUDIES: CT chest: No pulmonary embolism. Commonly reported imaging features of Coronoavirus-19 are present. Peripheral ground glass opacities with areas of consolidation and interlobular lines which are commonly reported with coronavirus followup imaging. No pneumothorax. No pleural effusion. Mild coronary atherosclerosis. ASSESSMENT: This is a 61-year-old female with morbid obesity, body mass index (BMI) 44.3, admitted on 04/04/2021, history of chronic back pain, hyperlipidemia, leg pain, hypothyroidism and obstructive sleep apnea with one week history of fatigue, malaise, shortness of breath, cough, subjective fever and chills without nausea, vomiting, hemoptysis or diarrhea. Patient had recently undergone injections in her spine with pain management. She was found to be positive for coronavirus with CT chest showing ground glass opacities consistent with coronavirus infection. IMPRESSION: 1. Coronavirus pneumonia. 2. Acute hypoxemic respiratory failure requiring Vapotherm. 3. History of obstructive sleep apnea. 4. Morbid obesity, BMI of 44. 5. Hypertension. 6. Sinus bradycardia. 7. History of dyslipidemia. 8. Chronic back and leg pain. PLAN: Patient is currently unstable in the coronavirus unit and will be transferred to the intensive care unit due to worsening hypoxemia. Cardiac markers will be monitored. She has increasing D-dimer, fibrinogen levels, as well as ferritin. She is currently maximized on medical therapy with Remdesivir, Decadron, ceftriaxone. Promotions Executive Producer has been consulted, Dr. Adame, for help in prone positioning and management in severe hypoxemia. I have discussed with the patient that she may needs, at some point if there is no improvement, intubation and mechanical ventilation. She was agreeable and confirms her FULL CODE status. She is continued on deep venous thrombosis (DVT) prophylaxis with Lovenox despite negative findings of pulmonary embolism on CT of the chest. Due to sudden decompensation, she is being transferred to the intensive care unit.
[2021-04-05] MEDS: REMDESIVIR 100 MG in NS 250 ML IV SCH (20:03)
[2021-04-05] MEDS: SODIUM CHLORIDE 0.9% INJ 10 ML SYR IV SCH (22:47)
[2021-04-06] VITALS (12 sets, daily range): BP systolic 87–150; BP diastolic 52–99
[2021-04-06 05:16] LABS: HEMATOCRIT 41.2 % (36.0-47.0); HEMOGLOBIN 13.3 g/dl (12.0-15.5); MEAN CORPUSCULAR HEMOGLOBIN 27.2 pg (27.0-33.0); MEAN CORPUSCULAR HGB CONC 32.3 g/dl (32.0-36.5); MEAN CORPUSCULAR VOLUME 84.3 fl (80.0-96.0); PLATELET COUNT, AUTOMATED 150 10^3/uL (150-450); RED BLOOD COUNT 4.89 10^6/uL (4.00-5.40); WHITE BLOOD COUNT 6.5 10^3/uL (4.0-10.0)
[2021-04-06 05:36] LABS: INR 1.16; PROTHROMBIN TIME 15.1 SECONDS (12.5-14.3)
[2021-04-06 05:37] LABS: PARTIAL THROMBOPLASTIN TIME 34.3 SECONDS (24.2-38.5)
[2021-04-06 05:40] LABS: ALBUMIN 2.1 GM/DL (3.2-5.2); ALT/SGPT 23 U/L (12-78); BILIRUBIN,DIRECT 0.2 MG/DL (0.0-0.2); BILIRUBIN,TOTAL 0.3 MG/DL (0.2-1.0); BLOOD UREA NITROGEN 29 MG/DL (7-18); CALCIUM LEVEL 7.9 MG/DL (8.8-10.2); CARBON DIOXIDE LEVEL 28 MEQ/L (21-32); CHLORIDE LEVEL 105 MEQ/L (98-107); CPK CREATINE PHOSPHOKINASE 88 U/L (26-192); CREATININE FOR GFR 0.96 MG/DL (0.55-1.30); FERRITIN 1768 NG/ML (8-252); GLOMERULAR FILTRATION RATE > 60.0 (>45); GLUCOSE, FASTING 138 MG/DL (70-100); LDH LACTATE DEHYDROGENASE 830 U/L (84-246); MAGNESIUM LEVEL 2.3 MG/DL (1.8-2.4); NT-PRO BNP 676 PG/ML (<125); POTASSIUM SERUM 4.3 MEQ/L (3.5-5.1); SODIUM LEVEL 139 MEQ/L (136-145); TOTAL PROTEIN 6.1 GM/DL (6.4-8.2); TROPONIN I < 0.02 NG/ML (< 0.10)
[2021-04-06] MEDS: LEVOTHYROXINE 25MCG TABLET (0.025MG) PO SCH (05:52)
[2021-04-06] MEDS: LEVOTHYROXINE 150MCG TABLET (0.15MG) PO SCH (05:52)
[2021-04-06] MEDS: ENOXAPARIN 60MG/0.6ML SYRINGE (J1650 PER 10MG) SC SCH ×2 (05:52→18:06)
--- NOTE | 2021-04-06 08:37 | IPN ---
PROGRESS NOTE DATE: 04/06/2021 SUBJECTIVE: Patient was transferred to ICU due to worsening hypoxia requiring Vapotherm, maxed on 100% FiO2, 40 liters flow rate on the oxygen. The patient says her breathing is unchanged, is still with some difficulty. No cough. No fevers or chills. No loss of taste. Telemetry shows bradycardia with ventricular rate of 31 to 50. Asymptomatic. Blood pressure was well maintained with mean arterial pressure of 75 to 90. OBJECTIVE: VITAL SIGNS: Temperature 97.4, pulse 37, sinus rhythm. Respiratory rate 24, blood pressure 106/59, 92% on BiPAP 15 liters. GENERAL: Generally awake, alert and oriented to person, place, and time. BiPAP on. Answering questions appropriately. HEENT: Mild use of respiratory accessory muscles. No tracheal deviation. No JVD, thyromegaly or cervical lymphadenopathy. No pallor or icterus. LUNGS: Diminished. Fine crackles at the bases. HEART: S1, S2, bradycardic. ABDOMEN: Obese, soft, nontender, nondistended. EXTREMITIES: No cyanosis, clubbing, or pitting edema. LABS: White count 6.5, hemoglobin 13, hematocrit 41, platelet count 150. INR 1.16, PT 15.1, fibrinogen 789 from previous 830, d-dimer increased to 3186 from 2940. Sodium 139, potassium 4.6, chloride 104, bicarb 28, BUN 29, creatinine 0.96, glucose 138, calcium 7.9, ferritin 1768 increased from 1593. LDH increased from 763 to 830. Troponin less than 0.02. BNP increased from 470 to 676. Procalcitonin pending. MICROBIOLOGY: Urine culture with E. coli, pansensitive, on IV ceftriaxone. ASSESSMENT AND PLAN: This is a 61-year-old obese female, BMI of 43 with obstructive sleep apnea on BiPAP, morbid obesity, osteoarthritis, hypothyroidism, hyperlipidemia, chronic back pain who presented with dyspnea on exertion, fatigue for one week with malaise, shortness of breath with cough productive of dark brown sputum. Denied dysuria, urgency, frequency. The patient has chronic low back pain, myalgias, had corticosteroid injection to her back with Pain Management on the . COVID test on the 26 of March was negative. Came in to the Emergency Room and was admitted on 04/04. Coronavirus positive which chest x-ray consistent with patchy ground glass infiltrates, treated for coronavirus pneumonia. ACTIVE ISSUES: 1. Acute hypoxic respiratory failure requiring Vapotherm secondary to coronavirus infection/pneumonia requiring Vapotherm maxed out at 100% FiO2. Transferred to ICU on 04/05/2021. Cook Dinner consulted. 2. Coronavirus pneumonia on remdesivir. Possible secondary bacterial pneumonia, on Rocephin. The patient is on prone positioning when sleeping and awake pronation during the day as tolerated per recommendations by life skills teacher, on Combivent p.r.n. The patient is on Lovenox, remdesivir, Decadron. 3. Urinary tract infection. IV ceftriaxone, panculture was sensitive. 4. Hypothyroidism, on chronic Synthroid. 5. Chronic back pain on Percocet and Flector Patch. Advil as needed for pain. 6. THE PATIENT IS A FULL CODE.
[2021-04-06] MEDS: VENLAFAXINE **XR** 75MG CAPSULE PO SCH (09:38)
[2021-04-06] MEDS: ATORVASTATIN 20 MG TAB PO SCH (09:38)
[2021-04-06] MEDS: dexameTHASONE 4 MG/ML 1ML VIAL (J1100 PER 1MG) IV SCH (09:39)
[2021-04-06] MEDS: tiZANidine 4 MG TAB PO PRN ×2 (09:40→20:31)
[2021-04-06] MEDS: PERCOCET 5MG/325MG TAB PO PRN ×2 (09:42→16:18)
[2021-04-06] MEDS: cefTRIAXone SOD 1 GM in D5W MINI-BAG PLUS 50 ML IV SCH (11:45)
--- NOTE | 2021-04-06 17:10 | CCN ---
CRITICAL CARE NOTE DATE: 04/06/2021 SUBJECTIVE: The patient was seen and examined today during bedside rounds. Overnight there were no acute events. The patient did receive her home BIPAP yesterday in the afternoon and had placed it on throughout the day. The patient this morning preferred to remain on her home BIPAP with the nasal prong interface rather the high flow nasal cannula oxygen. She does continue to report some shortness of breath and dyspnea. She has an occasional cough at this time. She has not had any significant wheezes. She has not had any fevers or chills overnight. OBJECTIVE: PHYSICAL EXAMINATION: VITAL SIGNS: Temperature 97.4, pulse 37, respirations 24, blood pressure 106/59, O2 sat 92% on 10-15 liters bleed-in. INTAKE AND OUTPUT: In's 1.5 liters, out 1.5 liters, net even. GENERAL APPEARANCE: The patient is a morbidly obese female, is lying in bed, appears comfortable. She is able to speak in complete sentences and is not using any accessory muscles for respiration. HEENT: Normocephalic and atraumatic. There are moist mucous membranes noted. NECK: Thick. Unable to appreciate any jugular venous distention. Trachea is midline, no palpable lymphadenopathy. CARDIAC: Somewhat distant heart sounds, regular rate and rhythm, occasionally bradycardic, normal S1, S2 with no significant murmurs. PULMONARY: Diminished breath sounds bilaterally with few crackles at the bases. No wheezes or rhonchi. ABDOMEN: Obese, soft, nontender, nondistended. No palpable masses. EXTREMITIES: No significant lower extremity edema noted bilaterally. LABORATORY STUDIES: WBC is 6.5, hemoglobin is 13.3, platelets are 150. Chemistries - sodium is 139, potassium 4.3, chloride is 105, bicarbonate is 28, BUN 29, creatinine 0.96, glucose 138. Ferratin is 1765, AST ALT 62 and 23, alkaline phosphatase is 71, albumin is 2.1, LDH is 830. INR is 1.16, fibrinogen is 784. Microbiology Urine culture is positive for E-coli that was pansensitive. ASSESSMENT: Miss Andrea is a 61-year-old female with a past medical history of hyperlipidemia, hypothyroidism, chronic back pain, osteoarthritis and morbid obesity, history of obstructive sleep apnea on BIPAP, who presented with worsening shortness of breath and fatigue. The patient was found to have acute hypoxemic respiratory failure in the E.D. and was also COVID-19 positive. Imaging findings on admission were consistent with COVID-19 pneumonia. The patient also had suspicion for a urinary tract infection initially with a positive urinalysis. The patient was initially admitted to the COVID Unit, however she had required increasing amounts of oxygen requirements and was on Vapotherm up to 40 liters a minute and 100% FiO2. 1. Acute hypoxemic respiratory failure in the setting of COVID-19 pneumonia. The patient was on our BIPAP initially at the setting of 18/12 which was her home pressure setting. We were able to wean down her FiO2 with our BIPAP and we were also able to wean down her Vapotherm FiO2. She had difficulty however tolerating the full face mask with the BIPAP and so had gone back onto her home BIPAP with the setting 18/12 with a 15 liter bleed-in and with the nasal interface. With her home BIPAP and the nasal interface she has been able to prone at night and she does report it as more comfortable and has been preferring to use her home BIPAP rather than Vapotherm this morning as well. Can continue with her home BIPAP to maintain 02 sat above 90%. With her home BIPAP would continue to encourage awake pronation during the day and at night to help with recruitment. Would also encourage continued incentive spirometer use as well. Can continue with Combivent p.r.n. as needed. She does not have any prior history of chronic obstructive pulmonary disease or asthma although she does have a prior history of nicotine dependence. She does not have any significant wheezing on exam currently. We will continue her with Remdesivir and Dexamethasone for her COVID-19 pneumonia with her acute hypoxemic respiratory failure. We will continue to monitor her inflammatory markers and if there is evidence of increasing CRP or urgent concern for cytokine storm, can consider Tocilizumab. 2. E-coli urinary tract infection - continue with Ceftriaxone for her urinary tract infection. DVT prophylaxis - continue with weight based Lovenox for prophylaxis given her elevated D-dimer and poor inflammatory state with COVID-19. Code Status full code. Total critical care time spent not including procedures approximately 35 minutes. ALENAD
[2021-04-06 19:49] LABS: INR 1.16; PROTHROMBIN TIME 15.1 SECONDS (12.5-14.3)
[2021-04-06 19:50] LABS: PARTIAL THROMBOPLASTIN TIME 33.7 SECONDS (24.2-38.5)
[2021-04-06 19:53] LABS: D-DIMER QUANT 2034.32 ng/ml (<500)
[2021-04-06 20:03] LABS: ALBUMIN 2.2 GM/DL (3.2-5.2); BILIRUBIN,DIRECT 0.2 MG/DL (0.0-0.2); BILIRUBIN,TOTAL 0.4 MG/DL (0.2-1.0); C REACTIVE PROTEIN QUANTITATIV 12.1 MG/DL (0.00-0.30); CPK CREATINE PHOSPHOKINASE 69 U/L (26-192); LDH LACTATE DEHYDROGENASE 860 U/L (84-246); NT-PRO BNP 679 PG/ML (<125); TOTAL PROTEIN 7.4 GM/DL (6.4-8.2); TROPONIN I < 0.02 NG/ML (< 0.10)
[2021-04-06] MEDS: REMDESIVIR 100 MG in NS 250 ML IV SCH (20:31)
[2021-04-06] MEDS: SODIUM CHLORIDE 0.9% INJ 10 ML SYR IV SCH (22:08)
[2021-04-07] VITALS (8 sets, daily range): BP systolic 109–158; BP diastolic 53–79
[2021-04-07] MEDS: PERCOCET 5MG/325MG TAB PO PRN (00:48)
[2021-04-07 05:14] LABS: HEMATOCRIT 39.9 % (36.0-47.0); HEMOGLOBIN 12.9 g/dl (12.0-15.5); MEAN CORPUSCULAR HEMOGLOBIN 27.2 pg (27.0-33.0); MEAN CORPUSCULAR HGB CONC 32.3 g/dl (32.0-36.5); PLATELET COUNT, AUTOMATED 192 10^3/uL (150-450); RED BLOOD COUNT 4.75 10^6/uL (4.00-5.40); WHITE BLOOD COUNT 7.4 10^3/uL (4.0-10.0)
[2021-04-07] MEDS: LEVOTHYROXINE 150MCG TABLET (0.15MG) PO SCH (05:31)
[2021-04-07] MEDS: ENOXAPARIN 60MG/0.6ML SYRINGE (J1650 PER 10MG) SC SCH ×2 (05:31→17:06)
[2021-04-07] MEDS: LEVOTHYROXINE 25MCG TABLET (0.025MG) PO SCH (05:31)
[2021-04-07 05:41] LABS: BLOOD UREA NITROGEN 37 MG/DL (7-18); CARBON DIOXIDE LEVEL 27 MEQ/L (21-32); CHLORIDE LEVEL 106 MEQ/L (98-107); CREATININE FOR GFR 0.97 MG/DL (0.55-1.30); GLOMERULAR FILTRATION RATE > 60.0 (>45); GLUCOSE, FASTING 160 MG/DL (70-100); MAGNESIUM LEVEL 2.4 MG/DL (1.8-2.4); POTASSIUM SERUM 4.2 MEQ/L (3.5-5.1); SODIUM LEVEL 140 MEQ/L (136-145)
[2021-04-07] MEDS ORDERED: FUROSEMIDE 40 MG TAB PO ONE (08:00)
[2021-04-07] MEDS: VENLAFAXINE **XR** 75MG CAPSULE PO SCH (08:03)
[2021-04-07] MEDS: dexameTHASONE 4 MG/ML 1ML VIAL (J1100 PER 1MG) IV SCH (08:03)
[2021-04-07] MEDS: ATORVASTATIN 20 MG TAB PO SCH (08:03)
[2021-04-07] MEDS: cefTRIAXone SOD 1 GM in D5W MINI-BAG PLUS 50 ML IV SCH (11:15)
--- NOTE | 2021-04-07 11:19 | CCN ---
CRITICAL CARE NOTE DATE: 04/07/2021 SUBJECTIVE: Patient was seen and examined this morning during bedside rounds. Patient had continued on her home Bi-PAP with the nasal interface. She does find it more comfortable than the Vapotherm. She was placed on Vapotherm, however, earlier in the day for her breakfast, which she tolerated well for the most part except for developing some sinus pressure later on. She does report occasional cough still which she feels has been more productive recently and with looser mucus. Her mucus is mei in color and occasionally brown. She does not have any hemoptysis that she notices. She otherwise continues to have shortness of breath, particularly with more strenuous exertion. She denies any significant lower extremity edema that she notices currently and no fevers or chills overnight. OBJECTIVE: VITAL SIGNS: Temperature 96.8, pulse 41, respirations 20, blood pressure 150/68, O2 sat 95% on Bi-PAP 10 liters a minute. Ins 1.5 liters, out 1 liter, net positive 480 mL. GENERAL: Patient is a morbidly obese female sitting in the bed and appears comfortable. She is able to speak in complete sentences and is not using any accessory muscles for respiration. HEENT: Normocephalic/atraumatic. There are moist mucous membranes noted. NECK: Thick. Unable to appreciate any JVD. Trachea is midline. No palpable lymphadenopathy. CARDIAC: Somewhat distant heart sounds, bradycardic, regular rate and rhythm. Normal S1 and S2 with no significant murmurs. PULMONARY: Diminished breath sounds bilaterally with few crackles at the bases, more on the left. No wheezes or rhonchi noted. ABDOMEN: Obese, soft, nontender, nondistended. No palpable masses. EXTREMITIES: There is no significant lower extremity edema noted bilaterally. The left leg has well healed surgical scars with some trace edema and appears larger than the right chronically. LABORATORY DATA: WBC 7.4, hemoglobin 12.9, platelets 192. Chemistries: Sodium 140, potassium 4.2, chloride 106, bicarb 27, BUN 37, creatinine 0.97, glucose 160, magnesium 2.4. Ferritin was 1695. LDH 860. CRP trending down to 12.10. BNP increasing to 679. Procalcitonin increased to 0.50. ASSESSMENT AND PLAN: Mrs. Felder is a 61-year-old female with a past medical history of hyperlipidemia, hypothyroidism, chronic back pain, osteoarthritis, morbid obesity, and CED on Bi-PAP who presented with worsening shortness of breath and fatigue. Patient with acute hypoxemic respiratory failure in the setting of COVID-19 pneumonia. She also had UTI with E. coli. 1. Acute hypoxemic respiratory failure in the setting of COVID-19 pneumonia. a. Patient is on Bi-PAP at home chronically with settings of 07/11. She has been tolerating her home Bi-PAP which she prefers with the nasal interface rather than our full face mask Bi-PAP here. She can continue using Bi-PAP during the day and at night with Vapotherm to be used when eating to help with risk of aspiration. b. Will continue to encourage patient with awake pronation during the day and at night to help with lung recruitment and her oxygenation. c. Continue to encourage incentive spirometer use. d. Continue Combivent p.r.n. as needed. e. Continue with Remdesivir and dexamethasone for her COVID-19 pneumonia with her acute hypoxemic respiratory failure. f. Continue to monitor inflammatory markers. Her CRP has been trending down. g. Patient is noted to be mildly net positive today. Her BNP has also been trending up. Will give her one time dose of Lasix 40 mg p.o. to keep her more on the net even or slightly negative. 2. UTI with E. coli. Patient does also have report of productive cough with mei to brown sputum. Her procalcitonin has been increasing. Will, therefore, increase her ceftriaxone to 1 gram q.12 hours and will check a sputum culture. 3. DVT prophylaxis. Continue weight based Lovenox for prophylaxis given her inflammatory state with COVID-19 and elevated D-dimer. CODE STATUS: Full code. TOTAL CRITICAL CARE TIME SPENT NOT INCLUDING PROCEDURES: Approximately 35 minutes. MTDD
--- NOTE | 2021-04-07 13:30 | IPNPDOC ---
Text Note Date of Service The patient was seen on 04/07/21. NOTE Subjective: Patient was seen and examined this morning at bedside in the ICU. Patient was on Vapotherm and had used her own BiPAP machine overnight comfortably. She was saturating at 88% on Vapotherm. Tells me overall she is feeling better her breathing feels better but overall continues to have shortness of breath. Today she developed a cough she denies hemoptysis. She denies fevers or chills overnight. On telemetry she still has bradycardia heart rate of 45. Objective: Constitutional: Awake and alert, in no apparent distress, obese ENT: Sclera are clear. Mucosa is moist. Respiratory: Lungs diminished breath sounds bilaterally. No respiratory distress. On Vapotherm. Not using accessory muscles to breathe today. She was able to speak to me this morning in complete sentences without stopping to catch her breath. Cardiovascular: S1, S2, bradycardia 45 and monitor, no murmur Gastrointestinal: Abdomen is soft, non distended, non tender Musculoskeletal: Dependent lower extremity edema. No joint deformities. Neurologic: No focal neurological deficit. Mental Status: A&O x3, normal affect Skin: No visible rashes Assessment/plan: 61-year-old female has morbid obesity with CED on BiPAP, osteoarthritis, hypothyroidism, hyperlipidemia, chronic back pain, who presented with dyspnea on exertion for 1 week and a productive sputum she tested positive for Covid on April 04. # Acute Hypoxic respiratory failure in the setting of Covid 19 infection with possible superimposed bacterial pneumonia: - Initial inflammatory markers elevated. Trend inflammatory markers. IV Decadron daily. Lovenox COVID prophylactic dosing due to obesity. Continue supplemental oxygen O2 target 88-92%. May use home BiPAP machine. Currently on Vapotherm. Continue rimdasivir. # Possible superimposed bacterial pneumonia: Continue IV ceftriaxone. BCx negative to date. No leukocytosis. # UTI: On IV ceftriaxone, pansensitive. # Hypothyroidism: resume Synthroid. # Chronic back pain: Continue Percocet and Advil as needed # CED: Can continue home BiPAP machine # Morbid obesity: BMI 44. Complicates care. # DVT prophylaxis: Lovenox COVID prophylactic dose A [facility] Hospital[facility] VS,Fishbone, I+O VS, Fishbone, I+O Laboratory Tests 04/07/21 04:52 Vital Signs Date Time Temp Pulse Resp B/P (MAP) Pulse Ox O2 Delivery O2 Flow Rate FiO2 04/07/21 12:00 10.0 04/07/21 11:00 98.1 45 114/61 (78) 95 NIPPV (BIPAP/CPAP) 04/07/21 10:00 100 04/07/21 08:00 22 I&O- Last 24 Hours up to 6 AM 04/07/21 06:00 Intake Total 1670 ml Output Total 1170 ml Balance 500 ml FRANKLYN GARCIA MD April 07, 2021 13:30
[2021-04-07] MEDS: tiZANidine 4 MG TAB PO PRN (21:19)
[2021-04-07] MEDS: REMDESIVIR 100 MG in NS 250 ML IV SCH (21:19)
[2021-04-07] MEDS: IBUPROFEN 800 MG TAB PO PRN (21:19)
[2021-04-07] MEDS: SODIUM CHLORIDE 0.9% INJ 10 ML SYR IV SCH (22:00)
[2021-04-08] VITALS: BP 150/72
[2021-04-08] MEDS: cefTRIAXone SOD 1 GM in D5W MINI-BAG PLUS 50 ML IV SCH ×2 (00:32→12:06)
[2021-04-08 04:00] VITALS: BP 140/65
[2021-04-08 04:58] LABS: HEMATOCRIT 39.4 % (36.0-47.0); HEMOGLOBIN 12.9 g/dl (12.0-15.5); MEAN CORPUSCULAR HEMOGLOBIN 27.3 pg (27.0-33.0); MEAN CORPUSCULAR HGB CONC 32.7 g/dl (32.0-36.5); MEAN CORPUSCULAR VOLUME 83.3 fl (80.0-96.0); PLATELET COUNT, AUTOMATED 213 10^3/uL (150-450); RED BLOOD COUNT 4.73 10^6/uL (4.00-5.40); WHITE BLOOD COUNT 7.7 10^3/uL (4.0-10.0)
[2021-04-08 05:10] LABS: INR 1.17; PARTIAL THROMBOPLASTIN TIME 32.4 SECONDS (24.2-38.5); PROTHROMBIN TIME 15.2 SECONDS (12.5-14.3)
[2021-04-08 05:30] LABS: ALBUMIN 2.3 GM/DL (3.2-5.2); ALT/SGPT 29 U/L (12-78); BILIRUBIN,DIRECT 0.2 MG/DL (0.0-0.2); BILIRUBIN,TOTAL 0.4 MG/DL (0.2-1.0); BLOOD UREA NITROGEN 32 MG/DL (7-18); CARBON DIOXIDE LEVEL 27 MEQ/L (21-32); CHLORIDE LEVEL 108 MEQ/L (98-107); CPK CREATINE PHOSPHOKINASE 51 U/L (26-192); CREATININE FOR GFR 0.74 MG/DL (0.55-1.30); FERRITIN 1034 NG/ML (8-252); GLOMERULAR FILTRATION RATE > 60.0 (>45); GLUCOSE, FASTING 112 MG/DL (70-100); LDH LACTATE DEHYDROGENASE 788 U/L (84-246); MAGNESIUM LEVEL 2.3 MG/DL (1.8-2.4); NT-PRO BNP 339 PG/ML (<125); POTASSIUM SERUM 4.2 MEQ/L (3.5-5.1); SODIUM LEVEL 141 MEQ/L (136-145); TROPONIN I < 0.02 NG/ML (< 0.10)
[2021-04-08] MEDS: LEVOTHYROXINE 25MCG TABLET (0.025MG) PO SCH (06:00)
[2021-04-08] MEDS: ENOXAPARIN 60MG/0.6ML SYRINGE (J1650 PER 10MG) SC SCH ×2 (06:00→17:39)
[2021-04-08] MEDS: LEVOTHYROXINE 150MCG TABLET (0.15MG) PO SCH (06:00)
[2021-04-08] MEDS: dexameTHASONE 4 MG/ML 1ML VIAL (J1100 PER 1MG) IV SCH (07:49)
[2021-04-08] MEDS: tiZANidine 4 MG TAB PO PRN (07:50)
[2021-04-08] MEDS: ATORVASTATIN 20 MG TAB PO SCH (07:50)
[2021-04-08] MEDS: VENLAFAXINE **XR** 75MG CAPSULE PO SCH (07:50)
--- NOTE | 2021-04-08 07:54 | IPNPDOC ---
Text Note Date of Service The patient was seen on 04/08/21. NOTE Subjective: Patient was seen and examined this morning at bedside in the ICU. Patient is on Vapotherm and using her own BiPAP machine. She saturating at 89%. She tells me her breathing feels about the same as yesterday. Her breathing is okay during rest but she feels short of breath during any exertion. She still has a cough which is bothersome and will try some guaifenesin today. Telemetry showing heart rate low 40s while she is asleep but remains asymptomatic. Denies any lightheadedness denies chest pain denies palpitations. Objective: Constitutional: Awake and alert, in no apparent distress, obese ENT: Sclera are clear. Mucosa is moist. Respiratory: Lungs diminished breath sounds bilaterally. No respiratory distress. On Vapotherm. Not using accessory muscles to breathe today. She was able to speak to me this morning in complete sentences. Cardiovascular: S1, S2, bradycardia 45 and monitor, no murmur Gastrointestinal: Abdomen is soft, non distended, non tender Musculoskeletal: Dependent lower extremity edema. No joint deformities. Neurologic: No focal neurological deficit. Mental Status: A&O x3, normal affect Skin: No visible rashes Assessment/plan: 61-year-old female has morbid obesity with CED on BiPAP, osteoarthritis, hypothyroidism, hyperlipidemia, chronic back pain, who presented with dyspnea on exertion for 1 week and a productive sputum she tested positive for Covid on April 04. # Acute Hypoxic respiratory failure in the setting of Covid 19 infection with possible superimposed bacterial pneumonia: - Initial inflammatory markers elevated. Trend inflammatory markers. IV Decadron daily. Lovenox COVID prophylactic dosing due to obesity. Continue supplemental oxygen O2 target 88-92%. May use home BiPAP machine. Currently on Vapotherm. Continue rimdasivir. # Superimposed bacterial pneumonia: Continue IV ceftriaxone. BCx negative to d ate. No leukocytosis. Procalcitonin downtrending. # UTI: On IV ceftriaxone, pansensitive. # Hypothyroidism: resume Synthroid. # Chronic back pain: Continue Percocet and Advil as needed # CED: Can continue home BiPAP machine # Morbid obesity: BMI 44. Complicates care. # DVT prophylaxis: Lovenox COVID prophylactic dose [facility] VS,Stephany, I+O VS, Stephany, I+O Laboratory Tests 04/08/21 04:49 Vital Signs Date Time Temp Pulse Resp B/P (MAP) Pulse Ox O2 Delivery O2 Flow Rate FiO2 04/08/21 06:00 41 96 NIPPV (BIPAP/CPAP) 10.0 04/08/21 04:00 96.8 20 140/65 (90) 04/07/21 18:00 100 I&O- Last 24 Hours up to 6 AM 04/08/21 06:00 Intake Total 930 ml Output Total 1825 ml Balance -895 ml FRANKLYN GARCIA MD April 08, 2021 07:54
[2021-04-08 08:00] VITALS: BP 159/72
[2021-04-08] MEDS ORDERED: guaiFENesin SYRUP 200 MG/10 ML UDC PO PRN (11:25)
--- NOTE | 2021-04-08 11:42 | CCN ---
CRITICAL CARE NOTE DATE: 04/08/2021 SUBJECTIVE: Patient was seen and examined this morning during bedside rounds. She denies any new complaints. Has some shortness of breath with more strenuous exertion but otherwise has been feeling well. She has occasional cough with some occasional productive mucus. She has not had any chest pain. No fevers or chills. No increased lower extremity edema. She did receive p.o. Lasix yesterday and did have some diuresis. She has been tolerating Vapotherm during the day while she is eating and otherwise prefers to go back on her home Bi-PAP during the day and at night. OBJECTIVE: VITAL SIGNS: Temperature 96.8, pulse 41, respirations 20, blood pressure 140/65, O2 sat 96% on Bi-PAP at 10 liters bleed. Ins 1.4, out 1.8, negative 85 mL. GENERAL: Patient is a morbidly obese female. Is lying in the bed and appears comfortable. Is speaking in complete sentences and is not using any accessory muscles for respiration. HEENT: Normocephalic/atraumatic. There are moist mucous membranes noted. NECK: Thick. Unable to clearly assess any JVD. Trachea is midline. No palpable lymphadenopathy. CARDIAC: Somewhat distant heart sounds. Bradycardic. Regular rate and rhythm. Normal S1 and S2. There are no murmurs. PULMONARY: Diminished breath sounds bilaterally with scant crackles at the bases. No wheezes or rhonchi noted. ABDOMEN: Obese, soft, nontender, nondistended. No palpable masses. EXTREMITIES: There is no significant lower extremity edema noted bilaterally. Left leg has a well healed surgical scar. LABORATORY DATA: WBC 7.7, hemoglobin 12.9, platelets 213. Chemistry: Sodium 141, potassium 4.2, chloride 108, bicarb 27, BUN 32, creatinine 0.74, glucose 112. Ferritin trended down to 1034. AST/ALT 49/29. LDH trending down to 788. BNP trended down to 339. Albumin 2.3. Procalcitonin trended down to 0.19. Fibrinogen decreased to 572. INR is 1.17. Sputum culture results are pending. ASSESSMENT/PLAN: Ms. Felder is a 61-year-old female with a past medical history of hyperlipidemia, hypothyroidism, chronic back pain, osteoarthritis, morbid obesity, and CED on Bi-PAP who presented with worsening shortness of breath and fatigue. Patient with acute hypoxemic respiratory failure in the setting of COVID-19 pneumonia. She also had a UTI with E. coli and possible superimposed bacterial pneumonia. 1. Acute hypoxemic respiratory failure in the setting of COVID-19 pneumonia with questionable superimposed bacterial pneumonia. a. Patient is on her home Bi-PAP with a nasal cannula interface which she prefers rather than our Vapotherm on settings of 18/12 with O2 bleed. Will continue to wean down her O2 bleed as tolerated. At night, she does have some desaturation likely as she is mouth breathing at night when sleeping. Would attempt to get a chin strap if possible. Can use the Vapotherm during the day when eating to help with the risk of aspiration. b. Will continue to encourage patient to use incentive spirometer throughout the day as well as with awake pronation during the day and at night to help with lung recruitment and oxygenation. c. Continue with Combivent p.r.n. d. Continue with Remdesivir and dexamethasone to complete the 10 day course given her severe hypoxemic respiratory failure. e. Her inflammatory markers are trending down. f. She did have increased BNP and was given one dose of Lasix p.o. yesterday and is net negative today with improvement in her BNP. Will continue to monitor her fluid balance and can give diuretics p.r.n. g. Patient's procalcitonin was increasing. With the increase in her ceftriaxone, her procalcitonin has trended down. Her sputum culture is still pending. Would likely continue ceftriaxone for a seven day course. 2. UTI with E. coli. She is on ceftriaxone 1 gram q.12 hours at this time. She will have completed her course of ceftriaxone within the next day or two but would likely continue for a seven day course for possible bacterial pneumonia. 3. DVT prophylaxis. Continue weight based Lovenox for prophylaxis given her inflammatory state with COVID-19 and elevated D-dimer. CODE STATUS: Full code. TOTAL CRITICAL CARE TIME SPENT NOT INCLUDING PROCEDURES: Approximately 35 minutes. Please do not hesitate to call with any further questions or concerns.
[2021-04-08 12:00] VITALS: BP 147/63
[2021-04-08] MEDS: PERCOCET 5MG/325MG TAB PO PRN (15:59)
[2021-04-08 16:00] VITALS: BP 184/81
[2021-04-08 19:42] LABS: ALBUMIN 2.4 GM/DL (3.2-5.2); ALT/SGPT 41 U/L (12-78); BILIRUBIN,DIRECT 0.2 MG/DL (0.0-0.2); BILIRUBIN,TOTAL 0.5 MG/DL (0.2-1.0); CPK CREATINE PHOSPHOKINASE 50 U/L (26-192); FERRITIN 820 NG/ML (8-252); LDH LACTATE DEHYDROGENASE 856 U/L (84-246); NT-PRO BNP 337 PG/ML (<125); TOTAL PROTEIN 6.4 GM/DL (6.4-8.2); TROPONIN I < 0.02 NG/ML (< 0.10)
[2021-04-08 20:00] VITALS: BP 177/72
[2021-04-08] MEDS: REMDESIVIR 100 MG in NS 250 ML IV SCH (20:06)
[2021-04-08] MEDS: SODIUM CHLORIDE 0.9% INJ 10 ML SYR IV SCH (21:31)
[2021-04-09] VITALS: BP 133/60
[2021-04-09] MEDS: cefTRIAXone SOD 1 GM in D5W MINI-BAG PLUS 50 ML IV SCH ×3 (00:02→23:34)
[2021-04-09 04:00] VITALS: BP 163/77
[2021-04-09 04:44] LABS: HEMATOCRIT 39.5 % (36.0-47.0); HEMOGLOBIN 12.8 g/dl (12.0-15.5); MEAN CORPUSCULAR HGB CONC 32.4 g/dl (32.0-36.5); MEAN CORPUSCULAR VOLUME 83.3 fl (80.0-96.0); PLATELET COUNT, AUTOMATED 229 10^3/uL (150-450); RED BLOOD COUNT 4.74 10^6/uL (4.00-5.40); WHITE BLOOD COUNT 9.2 10^3/uL (4.0-10.0)
[2021-04-09 05:13] LABS: BLOOD UREA NITROGEN 26 MG/DL (7-18); CALCIUM LEVEL 7.7 MG/DL (8.8-10.2); CARBON DIOXIDE LEVEL 27 MEQ/L (21-32); CHLORIDE LEVEL 109 MEQ/L (98-107); CREATININE FOR GFR 0.57 MG/DL (0.55-1.30); GLOMERULAR FILTRATION RATE > 60.0 (>45); GLUCOSE, FASTING 88 MG/DL (70-100); MAGNESIUM LEVEL 2.1 MG/DL (1.8-2.4); SODIUM LEVEL 142 MEQ/L (136-145)
[2021-04-09] MEDS: LEVOTHYROXINE 25MCG TABLET (0.025MG) PO SCH (05:42)
[2021-04-09] MEDS: ENOXAPARIN 60MG/0.6ML SYRINGE (J1650 PER 10MG) SC SCH ×2 (05:42→17:15)
[2021-04-09] MEDS: LEVOTHYROXINE 150MCG TABLET (0.15MG) PO SCH (05:42)
[2021-04-09] MEDS: VENLAFAXINE **XR** 75MG CAPSULE PO SCH (08:47)
[2021-04-09] MEDS: ATORVASTATIN 20 MG TAB PO SCH (08:47)
[2021-04-09] MEDS: dexameTHASONE 4 MG/ML 1ML VIAL (J1100 PER 1MG) IV SCH (08:47)
[2021-04-09 09:23] LABS: INR 1.15
[2021-04-09 09:26] LABS: D-DIMER QUANT 3390.73 ng/ml (<500)
[2021-04-09 10:42] VITALS: BP 139/64
[2021-04-09 12:18] VITALS: BP 142/99
--- NOTE | 2021-04-09 12:37 | IPNPDOC ---
Text Note Date of Service The patient was seen on 04/09/21. NOTE Subjective: Patient was seen and examined this morning at bedside in the ICU, patient was downgraded to PCU yesterday but no beds there were available. Tells me that today she is feeling muscle pain all over. Otherwise her breathing appears to be doing better. She still on Vapotherm although she's being down titrated successfully currently and continues to use her own BiPAP machine. She denies fevers or chills denies chest pain. She still has a cough and didn't try the gua ifenesin yesterday but will try it this morning. Objective: Constitutional: Awake and alert, in no apparent distress, obese ENT: Sclera are clear. Mucosa is moist. Respiratory: Lungs diminished breath sounds bilaterally. No respiratory distress. On Vapotherm. Not using accessory muscles to breathe today. Cardiovascular: S1, S2, bradycardia 45 and monitor, no murmur Gastrointestinal: Abdomen is soft, non distended, non tender Musculoskeletal: Dependent lower extremity edema. No joint deformities. Neurologic: No focal neurological deficit. Mental Status: A&O x3, normal affect Skin: No visible rashes Assessment/plan: 61-year-old female has morbid obesity with CED on BiPAP, osteoarthritis, hypothyroidism, hyperlipidemia, chronic back pain, who presented with dyspnea on exertion for 1 week and a productive sputum she tested positive for Covid on April 04. # Acute Hypoxic respiratory failure in the setting of Covid 19 pneumonia infection with possible superimposed bacterial pneumonia: - Initial inflammatory markers elevated. Trend inflammatory markers. IV Decadron daily. Lovenox COVID prophylactic dosing due to obesity. Continue supplemental oxygen O2 target 88-92%. May use home BiPAP machine. Currently on Vapotherm. Continue rimdasivir. Attempting to wean off of Vapotherm. Downgrade to medical bed from PCU status. # Superimposed bacterial pneumonia: Continue IV ceftriaxone. BCx negative to date. No leukocytosis. Procalcitonin downtrending. # UTI: On IV ceftriaxone, pansensitive. # Hypothyroidism: resume Synthroid. # Chronic back pain: Continue Percocet and Advil as needed # CED: Can continue home BiPAP machine # Morbid obesity: BMI 44. Complicates care. # DVT prophylaxis: Lovenox COVID prophylactic dose A [facility] VS,Stephany, I+O VS, Fishbone, I+O Laboratory Tests 04/09/21 04:38 04/09/21 04:39 Vital Signs Date Time Temp Pulse Resp B/P (MAP) Pulse Ox O2 Delivery O2 Flow Rate FiO2 04/09/21 12:00 44 92 04/09/21 10:42 98.5 22 139/64 (89) HVNI-Vapotherm 35.0 85 I&O- Last 24 Hours up to 6 AM 04/09/21 06:00 Intake Total 1150 ml Output Total 1350 ml Balance -200 ml FRANKLYN GARCIA MD April 09, 2021 12:37
[2021-04-09 18:00] VITALS: BP 140/80
[2021-04-09 19:53] VITALS: BP 142/80
[2021-04-09] MEDS: IBUPROFEN 800 MG TAB PO PRN (20:03)
[2021-04-10 04:14] VITALS: BP 148/62
[2021-04-10] MEDS: LEVOTHYROXINE 150MCG TABLET (0.15MG) PO SCH (05:13)
[2021-04-10] MEDS: LEVOTHYROXINE 25MCG TABLET (0.025MG) PO SCH (05:13)
[2021-04-10] MEDS: ENOXAPARIN 60MG/0.6ML SYRINGE (J1650 PER 10MG) SC SCH ×2 (05:14→17:28)
[2021-04-10] MEDS: VENLAFAXINE **XR** 75MG CAPSULE PO SCH (09:26)
[2021-04-10] MEDS: ATORVASTATIN 20 MG TAB PO SCH (09:26)
[2021-04-10] MEDS: dexameTHASONE 4 MG/ML 1ML VIAL (J1100 PER 1MG) IV SCH (09:26)
[2021-04-10 09:40] LABS: HEMATOCRIT 42.3 % (36.0-47.0); HEMOGLOBIN 13.5 g/dl (12.0-15.5); MEAN CORPUSCULAR HEMOGLOBIN 27.4 pg (27.0-33.0); MEAN CORPUSCULAR HGB CONC 31.9 g/dl (32.0-36.5); PLATELET COUNT, AUTOMATED 217 10^3/uL (150-450); RED BLOOD COUNT 4.92 10^6/uL (4.00-5.40); WHITE BLOOD COUNT 9.4 10^3/uL (4.0-10.0)
[2021-04-10 09:53] LABS: INR 1.2; PROTHROMBIN TIME 15.5 SECONDS (12.5-14.3)
[2021-04-10 09:54] LABS: PARTIAL THROMBOPLASTIN TIME 31.1 SECONDS (24.2-38.5)
[2021-04-10 10:22] LABS: ALBUMIN 2.6 GM/DL (3.2-5.2); ALT/SGPT 39 U/L (12-78); BILIRUBIN,DIRECT 0.2 MG/DL (0.0-0.2); BILIRUBIN,TOTAL 0.6 MG/DL (0.2-1.0); BLOOD UREA NITROGEN 25 MG/DL (7-18); CALCIUM LEVEL 8.7 MG/DL (8.8-10.2); CARBON DIOXIDE LEVEL 26 MEQ/L (21-32); CHLORIDE LEVEL 108 MEQ/L (98-107); CPK CREATINE PHOSPHOKINASE 39 U/L (26-192); CREATININE FOR GFR 0.72 MG/DL (0.55-1.30); FERRITIN 607 NG/ML (8-252); GLOMERULAR FILTRATION RATE > 60.0 (>45); GLUCOSE, FASTING 97 MG/DL (70-100); LDH LACTATE DEHYDROGENASE 798 U/L (84-246); MAGNESIUM LEVEL 2.3 MG/DL (1.8-2.4); NT-PRO BNP 483 PG/ML (<125); POTASSIUM SERUM 3.9 MEQ/L (3.5-5.1); SODIUM LEVEL 142 MEQ/L (136-145); TOTAL PROTEIN 6.6 GM/DL (6.4-8.2); TROPONIN I < 0.02 NG/ML (< 0.10)
[2021-04-10 11:22] VITALS: BP 126/58
[2021-04-10] MEDS: cefTRIAXone SOD 1 GM in D5W MINI-BAG PLUS 50 ML IV SCH (11:22)
[2021-04-10] MEDS ORDERED: LIDOCAINE 1% MDV 20ML VIAL As Ordered ONE (15:04)
--- NOTE | 2021-04-10 16:31 | IPNPDOC ---
Text Note Date of Service The patient was seen on 04/10/21. NOTE Subjective: Patient was seen and examined this morning at bedside now moved down to the Covid unit. Tells me she feels a little better today. She is sitting upright in her bed and eating chocolate ice cream. On Vapotherm not using her BiPAP right now. Tells me she feels her shortness of breath is a little better. She denies chest pain fevers or chills. Cough is better with the cough syrup. No acute overnight events reported to me Objective: Constitutional: Awake and alert, in no apparent distress, obese sitting upright in bed eating ice cream ENT: Sclera are clear. Mucosa is moist. Respiratory: Lungs diminished breath sounds bilaterally. No respiratory distress. On Vapotherm. Not using accessory muscles to breathe today. Cardiovascular: S1, S2, bradycardia 45 and monitor, no murmur Gastrointestinal: Abdomen is soft, non distended, non tender Musculoskeletal: Dependent lower extremity edema. No joint deformities. Neurologic: No focal neurological deficit. Mental Status: A&O x3, normal affect Skin: No visible rashes Assessment/plan: 61-year-old female has morbid obesity with CED on BiPAP, osteoarthritis, hypothyroidism, hyperlipidemia, chronic back pain, who presented with dyspnea on exertion for 1 week and a productive sputum she tested positive for Covid on April 04. # Acute Hypoxic respiratory failure in the setting of Covid 19 pneumonia infecti on with possible superimposed bacterial pneumonia: - Initial inflammatory markers elevated. Trend inflammatory markers. IV Decadron daily. Lovenox COVID prophylactic dosing due to obesity. Continue supplemental oxygen O2 target 88-92%. May use home BiPAP machine. Currently on Vapotherm. Continue rimdasivir. Attempting to wean off of Vapotherm. # Superimposed bacterial pneumonia: Continue IV ceftriaxone. BCx negative to date. No leukocytosis. Procalcitonin downtrending. # UTI: On IV ceftriaxone, pansensitive. Now treated. # Hypothyroidism: resume Synthroid. # Chronic back pain: Continue Percocet and Advil as needed # CED: Can continue home BiPAP machine # Morbid obesity: BMI 44. Complicates care. # DVT prophylaxis: Lovenox COVID prophylactic dose Disposition: She continues to improve very slowly we will continue to attempt weaning her off of Vapotherm she will likely end up needing to go home on supplemental oxygen. [facility] Stephany MERIDA I+O Stephany MERIDA I+O Laboratory Tests 04/10/21 08:56 Vital Signs Date Time Temp Pulse Resp B/P (MAP) Pulse Ox O2 Delivery O2 Flow Rate FiO2 04/10/21 11:22 99.6 50 22 126/58 (80) 91 HVNI-Vapotherm 35.0 80 I&O- Last 24 Hours up to 6 AM 04/10/21 06:00 Intake Total 770 ml Output Total 725 ml Balance 45 ml FRANKLYN GARCIA MD April 10, 2021 16:31
[2021-04-10] MEDS: SODIUM CHLORIDE 0.9% INJ 10 ML SYR IV SCH (16:44)
--- NOTE | 2021-04-10 16:56 | REP ---
PROCEDURE NAME: PICC LINE INSERTION W/SITERITE CLINICAL INFORMATION: poor venous access. COMPARISON: None. PROCEDURE DESCRIPTION: The procedure was performed by MILLER Macdonald, under the direct supervision of Dr. Molina. The risks and benefits of the procedure were explained to the patient and an informed consent was obtained verbally, written consent was obtained via the nurse. Directly prior to the start of the procedure a formal time-out was completed at the patient's bedside as this exam was done portably. The left basilic vein was localized using ultrasound guidance. The skin was prepped and draped in sterile fashion. One mL of 1% lidocaine 10 mg/mL was used as a local anesthetic. Using ultrasound guidance the left basilic vein was cannulated, and a 0.018 guidewire was inserted and advanced to the level of SVC using fluoroscopic guidance. The needle was removed and a 5.5 Niuean dilator and peel-away sheath was inserted over the guidewire. A 5.5 Niuean dual lumen catheter was cut to a length of 40 cm. The dilator was removed and the catheter was inserted over the guidewire with the tip ending at the level of the SVC. The peel-away sheath was removed and the catheter was flushed with heparinized saline as per hospital protocol. The catheter was affixed to the skin and a sterile dressing was applied. The patient tolerated the procedure well and there were no immediate complications. CONCLUSION: PICC line insertion into the left basilic vein. No fluoroscopy was utilized for this procedure. Imaging was obtained with serial chest x-rays done portably at the patient's bedside. <Electronically signed by Yohana Cedeño > 04/10/21 1619 <Electronically signed by Thomas Molina > 04/10/21 1651
[2021-04-10] MEDS: SODIUM CHLORIDE 0.9% INJ 10 ML SYR IV PRN (19:28)
[2021-04-10 20:00] VITALS: BP 122/65
[2021-04-10 20:30] LABS: ALBUMIN 2.4 GM/DL (3.2-5.2); ALT/SGPT 40 U/L (12-78); BILIRUBIN,DIRECT 0.2 MG/DL (0.0-0.2); BILIRUBIN,TOTAL 0.5 MG/DL (0.2-1.0); CPK CREATINE PHOSPHOKINASE 35 U/L (26-192); FERRITIN 562 NG/ML (8-252); LDH LACTATE DEHYDROGENASE 768 U/L (84-246); NT-PRO BNP 435 PG/ML (<125); TOTAL PROTEIN 6.6 GM/DL (6.4-8.2); TROPONIN I < 0.02 NG/ML (< 0.10)
[2021-04-11] MEDS: cefTRIAXone SOD 1 GM in D5W MINI-BAG PLUS 50 ML IV SCH ×2 (00:17→12:11)
[2021-04-11] MEDS: SODIUM CHLORIDE 0.9% INJ 10 ML SYR IV PRN (00:59)
[2021-04-11] MEDS: PERCOCET 5MG/325MG TAB PO PRN ×2 (04:35→22:07)
[2021-04-11] MEDS: SODIUM CHLORIDE 0.9% INJ 10 ML SYR IV SCH ×2 (05:27→17:45)
[2021-04-11] MEDS: LEVOTHYROXINE 150MCG TABLET (0.15MG) PO SCH (05:27)
[2021-04-11] MEDS: LEVOTHYROXINE 25MCG TABLET (0.025MG) PO SCH (05:27)
[2021-04-11] MEDS: ENOXAPARIN 60MG/0.6ML SYRINGE (J1650 PER 10MG) SC SCH ×2 (05:28→17:45)
[2021-04-11 05:29] VITALS: BP 128/68
[2021-04-11 05:47] LABS: HEMATOCRIT 38.5 % (36.0-47.0); HEMOGLOBIN 12.7 g/dl (12.0-15.5); MEAN CORPUSCULAR HEMOGLOBIN 27.7 pg (27.0-33.0); MEAN CORPUSCULAR VOLUME 84.1 fl (80.0-96.0); PLATELET COUNT, AUTOMATED 239 10^3/uL (150-450); RED BLOOD COUNT 4.58 10^6/uL (4.00-5.40)
[2021-04-11 06:08] LABS: BLOOD UREA NITROGEN 20 MG/DL (7-18); CALCIUM LEVEL 7.7 MG/DL (8.8-10.2); CARBON DIOXIDE LEVEL 27 MEQ/L (21-32); CHLORIDE LEVEL 107 MEQ/L (98-107); CREATININE FOR GFR 0.56 MG/DL (0.55-1.30); GLOMERULAR FILTRATION RATE > 60.0 (>45); GLUCOSE, FASTING 93 MG/DL (70-100); MAGNESIUM LEVEL 1.9 MG/DL (1.8-2.4); SODIUM LEVEL 140 MEQ/L (136-145)
[2021-04-11] MEDS: dexameTHASONE 4 MG/ML 1ML VIAL (J1100 PER 1MG) IV SCH (10:00)
[2021-04-11] MEDS: VENLAFAXINE **XR** 75MG CAPSULE PO SCH (10:01)
[2021-04-11] MEDS: ATORVASTATIN 20 MG TAB PO SCH (10:01)
--- NOTE | 2021-04-11 13:06 | IPNPDOC ---
Text Note Date of Service The patient was seen on 04/11/21. NOTE Subjective: -She denies chest pain fevers or chills. -No acute overnight events -Currently on vapotherm at 100% FiO2 and 40L/min Objective: Constitutional: Awake and alert, in no apparent distress, obese ENT: Sclera are clear. Mucosa is moist. Respiratory: Diminished breath sounds bilaterally. No respiratory distress. On Vapotherm. Not using accessory muscles. Cardiovascular: S1, S2, bradycardic, with regular rhythm, no murmurs Gastrointestinal: Abdomen is obese, soft, non distended, non tender, with normoactive sounds Extremities: Bilateral dependent lower extremity edema. No joint deformities. Otherwise WWP Neurologic: No focal neurological deficit. Mental Status: A&O x3, normal affect Skin: No visible rashes Labs: Reviewed WBC 10 Hgb 12.7 Platelets 239 na 140 K 4 Cr 0.56 mag 1.9 Assessment: 61-year-old W with morbid obesity, CED on nocturnal BiPAP, osteoarthritis, hypothyroidism, hyperlipidemia, chronic back pain, who presented with dyspnea on exertion for 1 week and a productive sputum and admitted for Covid-19 infection with super-imposed bacterial PNA. # Acute Hypoxic respiratory failure in the setting of Covid 19 pneumonia infection with superimposed bacterial pneumonia: - Initial inflammatory markers elevated. -Trend inflammatory markers. -IV Decadron daily 6mg, day 6 of 10. -Lovenox COVID prophylactic dosing due to obesity. -Continue supplemental oxygen O2 target 88-92%. -May use home BiPAP machine. -Currently on Vapotherm. -s/p 5d of remdesivir. # Superimposed bacterial pneumonia: Continue IV ceftriaxone. BCx negative to date. No leukocytosis. Procalcitonin downtrending. # UTI: On IV ceftriaxone, pansensitive. Now treated. -DC ceftriaxone, today is day 8. # Hypothyroidism: continue home Synthroid. # Chronic back pain: Continue Percocet and Advil as needed # CED: Can continue home BiPAP machine # Morbid obesity: BMI 44. Complicates care. # DVT prophylaxis: Lovenox COVID prophylactic dose Disposition: She continues to improve very slowly we will continue to attempt weaning her off of Vapotherm she will likely end up needing to go home on supplemental oxygen. VS,Fishbone, I+O VS, Fishbone, I+O Laboratory Tests 04/10/21 08:56 04/11/21 05:35 Vital Signs Date Time Temp Pulse Resp B/P (MAP) Pulse Ox O2 Delivery O2 Flow Rate FiO2 04/11/21 08:13 92 HVNI-Vapotherm 40.0 100 04/11/21 05:29 98.7 48 22 128/68 (88) I&O- Last 24 Hours up to 6 AM 04/11/21 06:00 Intake Total 1395 ml Balance 1395 ml BECKY GONCALVES MD April 11, 2021 08:32
[2021-04-11 14:00] VITALS: BP 138/78
[2021-04-11 20:00] VITALS: BP 138/80
[2021-04-12 06:00] VITALS: BP 150/72
[2021-04-12] MEDS: SODIUM CHLORIDE 0.9% INJ 10 ML SYR IV SCH ×2 (06:15→17:04)
[2021-04-12] MEDS: LEVOTHYROXINE 25MCG TABLET (0.025MG) PO SCH (06:16)
[2021-04-12] MEDS: LEVOTHYROXINE 150MCG TABLET (0.15MG) PO SCH (06:16)
[2021-04-12] MEDS: ENOXAPARIN 60MG/0.6ML SYRINGE (J1650 PER 10MG) SC SCH ×2 (06:16→17:03)
[2021-04-12] MEDS: ATORVASTATIN 20 MG TAB PO SCH (08:48)
[2021-04-12] MEDS: VITAMIN D 50,000 UNITS CAPSULE (ERGOCALCIFEROL 1.25MG) PO SCH (08:48)
[2021-04-12] MEDS: dexameTHASONE 4 MG/ML 1ML VIAL (J1100 PER 1MG) IV SCH (08:48)
[2021-04-12] MEDS: VENLAFAXINE **XR** 75MG CAPSULE PO SCH (08:49)
[2021-04-12 13:55] VITALS: BP 118/52
--- NOTE | 2021-04-12 15:22 | IPNPDOC ---
Text Note Date of Service The patient was seen on 04/12/21. NOTE Subjective: -No acute overnight events -Currently on vapotherm at 95% FiO2 and 35L/min Objective: Constitutional: Awake and alert, in no apparent distress, ill appearing, obese ENT: Sclera are clear. Mucosa is moist. Respiratory: Diminished breath sounds bilaterally. No respiratory distress. On Vapotherm. Not using accessory muscles. Cardiovascular: S1, S2, bradycardic, with regular rhythm, no murmurs Gastrointestinal: Abdomen is obese, soft, non distended, non tender, with normoactive sounds Extremities: Bilateral dependent lower extremity edema. No joint deformities. Otherwise WWP Neurologic: No focal neurological deficit. Mental Status: A&O x3, normal affect Skin: No visible rashes Labs: Reviewed Assessment: 61-year-old W with morbid obesity, CED on nocturnal BiPAP, osteoarthritis, hypothyroidism, hyperlipidemia, chronic back pain, who presented with dyspnea on exertion for 1 week and a productive sputum and admitted for Covid-19 infection with super-imposed bacterial PNA. # Acute Hypoxic respiratory failure in the setting of Covid 19 pneumonia infection with superimposed bacterial pneumonia: - Initial inflammatory markers elevated. -Trend inflammatory markers. -IV Decadron daily 6mg, day 7 of 10. -Lovenox COVID prophylactic dosing due to obesity. -Continue supplemental oxygen O2 target 88-92%. -May use home BiPAP machine. -Currently on Vapotherm. -s/p 5d of remdesevir. # Superimposed bacterial pneumonia: -s/p 8d of ceftriaxone, dc'd on 04/11 -BCx were negative -No leukocytosis -Procalcitonin downtrending # UTI: On IV ceftriaxone, pansensitive. Now treated. -DC ceftriaxone, today is day 8. # Hypothyroidism: continue home Synthroid. # Chronic back pain: Continue Percocet and Advil as needed # CED: Can continue home BiPAP machine # Morbid obesity: BMI 44. Complicates care. # DVT prophylaxis: Lovenox COVID prophylactic dose Disposition: She continues to improve very slowly we will continue to attempt weaning her off of Vapotherm she will likely end up needing to go home on supplemental oxygen. VS,Fishbone, I+O VS, Fishbone, I+O Vital Signs Date Time Temp Pulse Resp B/P (MAP) Pulse Ox O2 Delivery O2 Flow Rate FiO2 04/12/21 07:46 92 HVNI-Vapotherm 35.0 95 04/12/21 06:00 97.9 49 24 150/72 (98) I&O- Last 24 Hours up to 6 AM 04/12/21 06:00 Intake Total 530 ml Output Total 700 ml Balance -170 ml BECKY GONCALVES MD April 12, 2021 08:40
[2021-04-12] MEDS: COMBIVENT RESPIMAT 100-20MCG INHALER 4GM INH PRN (20:45)
[2021-04-12] MEDS: PERCOCET 5MG/325MG TAB PO PRN (21:46)
[2021-04-12 22:00] VITALS: BP 133/60
[2021-04-13 02:00] VITALS: BP 138/63
[2021-04-13 06:00] VITALS: BP 145/65
[2021-04-13] MEDS: ENOXAPARIN 60MG/0.6ML SYRINGE (J1650 PER 10MG) SC SCH ×2 (06:51→17:38)
[2021-04-13] MEDS: LEVOTHYROXINE 25MCG TABLET (0.025MG) PO SCH (06:52)
[2021-04-13] MEDS: LEVOTHYROXINE 150MCG TABLET (0.15MG) PO SCH (06:52)
[2021-04-13] MEDS: SODIUM CHLORIDE 0.9% INJ 10 ML SYR IV SCH ×2 (06:53→17:39)
[2021-04-13] MEDS: COMBIVENT RESPIMAT 100-20MCG INHALER 4GM INH PRN (08:03)
[2021-04-13] MEDS: VENLAFAXINE **XR** 75MG CAPSULE PO SCH (08:48)
[2021-04-13] MEDS: dexameTHASONE 4 MG/ML 1ML VIAL (J1100 PER 1MG) IV SCH (08:48)
[2021-04-13] MEDS: ATORVASTATIN 20 MG TAB PO SCH (08:49)
--- NOTE | 2021-04-13 09:16 | REP ---
INDICATION: worsening hypoxemia COMPARISON: 04/04/2021 TECHNIQUE: Portable AP view of the chest FINDINGS: Diffuse bilateral infiltrates essentially unchanged from prior examination when allowing for variation in technique. No obvious effusion. No obvious pneumothorax. Left PICC line with tip in the brachiocephalic vein. Cardiac silhouette is normal. Skeletal structures intact. IMPRESSION: Diffuse bilateral infiltrates. No significant change from prior examination. <Electronically signed by Truong Deng > 04/13/21 0954
[2021-04-13] MEDS: PERCOCET 5MG/325MG TAB PO PRN ×2 (11:13→20:17)
[2021-04-13 14:00] VITALS: BP 108/52
--- NOTE | 2021-04-13 17:55 | IPNPDOC ---
Text Note Date of Service The patient was seen on 04/13/21. NOTE Subjective: -No acute overnight events -Currently on vapotherm at 100% FiO2 and 40L/min Objective: Constitutional: Awake and alert, in no apparent distress, ill appearing, obese ENT: Sclera are clear. Mucosa is moist. Respiratory: Diminished breath sounds bilaterally. No respiratory distress. On Vapotherm. Not using accessory muscles. Cardiovascular: S1, S2, bradycardic, with regular rhythm, no murmurs Gastrointestinal: Abdomen is obese, soft, non distended, non tender, with normoactive sounds Extremities: Bilateral dependent lower extremity edema. No joint deformities. Otherwise WWP Neurologic: No focal neurological deficit. Mental Status: A&O x3, normal affect Skin: No visible rashes Labs: Reviewed Assessment: 61-year-old W with morbid obesity, CED on nocturnal BiPAP, osteoarthritis, hypothyroidism, hyperlipidemia, chronic back pain, who presented with dyspnea on exertion for 1 week and a productive sputum and admitted for Covid-19 infection with super-imposed bacterial PNA. # Acute Hypoxic respiratory failure in the setting of Covid 19 pneumonia infection with superimposed bacterial pneumonia: - Initial inflammatory markers elevated. -Trend inflammatory markers, very slowly downtrending -IV Decadron daily 6mg, day 8 of 10. -Lovenox COVID prophylactic dosing due to obesity. -Continue supplemental oxygen O2 target 88-92%. -May use home BiPAP machine. -Currently on Vapotherm. -s/p 5d of remdesevir. # Superimposed bacterial pneumonia: -s/p 8d of ceftriaxone, dc'd on 04/11 -BCx were negative -No leukocytosis -Procalcitonin downtrending -Will do CXR for slightly worsening O2 requirements # UTI: On IV ceftriaxone, pansensitive. Now treated. -s/p ceftriaxone # Hypothyroidism: continue home Synthroid. # Chronic back pain: Continue Percocet and Advil as needed # CED: Can continue home BiPAP machine # Morbid obesity: BMI 44. Complicates care. # DVT prophylaxis: Lovenox COVID prophylactic dose Disposition: She continues to improve very slowly we will continue to attempt weaning her off of Vapotherm she will likely end up needing to go home on supplemental oxygen. VS,Fishbone, I+O VS, Fishbone, I+O Vital Signs Date Time Temp Pulse Resp B/P (MAP) Pulse Ox O2 Delivery O2 Flow Rate FiO2 04/13/21 08:05 87 HVNI-Vapotherm 40.0 100 04/13/21 06:26 49 04/13/21 06:00 98.1 19 145/65 (91) I&O- Last 24 Hours up to 6 AM 04/13/21 06:00 Intake Total 1010 ml Output Total 600 ml Balance 410 ml BECKY GONCALVES MD April 13, 2021 08:48
[2021-04-13] MEDS: tiZANidine 4 MG TAB PO PRN (20:16)
[2021-04-13 20:18] VITALS: BP 108/58
[2021-04-13] MEDS ORDERED: OXYMETAZOLINE 0.05% NASAL SPRAY (AFRIN) PRN (21:05)
[2021-04-14 06:00] VITALS: BP 146/63
[2021-04-14] MEDS: ENOXAPARIN 60MG/0.6ML SYRINGE (J1650 PER 10MG) SC SCH ×2 (06:03→17:33)
[2021-04-14] MEDS: SODIUM CHLORIDE 0.9% INJ 10 ML SYR IV SCH ×2 (06:03→17:34)
[2021-04-14] MEDS: LEVOTHYROXINE 150MCG TABLET (0.15MG) PO SCH (06:03)
[2021-04-14] MEDS: LEVOTHYROXINE 25MCG TABLET (0.025MG) PO SCH (06:03)
[2021-04-14] MEDS: ATORVASTATIN 20 MG TAB PO SCH (08:56)
[2021-04-14] MEDS: VENLAFAXINE **XR** 75MG CAPSULE PO SCH (08:56)
[2021-04-14] MEDS: dexameTHASONE 4 MG/ML 1ML VIAL (J1100 PER 1MG) IV SCH (08:57)
[2021-04-14 09:35] LABS: HEMATOCRIT 44.5 % (36.0-47.0); HEMOGLOBIN 14.2 g/dl (12.0-15.5); MEAN CORPUSCULAR HEMOGLOBIN 26.9 pg (27.0-33.0); MEAN CORPUSCULAR HGB CONC 31.9 g/dl (32.0-36.5); MEAN CORPUSCULAR VOLUME 84.4 fl (80.0-96.0); PLATELET COUNT, AUTOMATED 263 10^3/uL (150-450); RED BLOOD COUNT 5.27 10^6/uL (4.00-5.40); WHITE BLOOD COUNT 14.6 10^3/uL (4.0-10.0)
[2021-04-14 09:48] LABS: BLOOD UREA NITROGEN 23 MG/DL (7-18); C REACTIVE PROTEIN QUANTITATIV 4.29 MG/DL (0.00-0.30); CALCIUM LEVEL 8.7 MG/DL (8.8-10.2); CARBON DIOXIDE LEVEL 27 MEQ/L (21-32); CHLORIDE LEVEL 106 MEQ/L (98-107); CREATININE FOR GFR 0.74 MG/DL (0.55-1.30); FERRITIN 609 NG/ML (8-252); GLOMERULAR FILTRATION RATE > 60.0 (>45); GLUCOSE, FASTING 103 MG/DL (70-100); SODIUM LEVEL 140 MEQ/L (136-145)
--- NOTE | 2021-04-14 16:44 | IPNPDOC ---
Text Note Date of Service The patient was seen on 04/14/21. NOTE Subjective: -No acute overnight events -Currently on vapotherm at 100% FiO2 and 40L/min, appears very comfortable though and reports feeling much better though hypoxemia is not improving Objective: Constitutional: Awake and alert, in no apparent distress, ill appearing, obese ENT: Sclera are clear. Mucosa is moist. Respiratory: Diminished breath sounds bilaterally. No respiratory distress. On Vapotherm with a non-rebreather over it this morning. Speaking comfortably. Cardiovascular: S1, S2, bradycardic, with regular rhythm, no murmurs Gastrointestinal: Abdomen is obese, soft, non distended, non tender, with normoactive sounds Extremities: Bilateral dependent lower extremity edema. No joint deformities. Otherwise WWP Neurologic: No focal neurological deficit. Mental Status: A&O x3, normal affect Skin: No visible rashes Labs: Reviewed. Pending AM labs Assessment: 61-year-old W with morbid obesity, CED on nocturnal BiPAP, osteoarthritis, hypothyroidism, hyperlipidemia, chronic back pain, who presented with dyspnea on exertion for 1 week and a productive sputum and admitted for Covid-19 infection with super-imposed bacterial PNA. # Acute Hypoxic respiratory failure in the setting of Covid 19 pneumonia infection with superimposed bacterial pneumonia: - Initial inflammatory markers elevated. -Trend inflammatory markers, very slowly downtrending -IV Decadron daily 6mg, day 9 of 10. -Lovenox COVID prophylactic dosing due to obesity. -Continue supplemental oxygen O2 target 88-92%. -May use home BiPAP machine. -Currently on Vapotherm. -s/p 5d of remdesevir. # Superimposed bacterial pneumonia: -s/p 8d of ceftriaxone, dc'd on 04/11 -BCx were negative -No leukocytosis -Procalcitonin downtrending -Will do CXR for slightly worsening O2 requirements # UTI: On IV ceftriaxone, pansensitive. Now treated. -s/p ceftriaxone # Hypothyroidism: continue home Synthroid. # Chronic back pain: Continue Percocet and Advil as needed # CED: Can continue home BiPAP machine # Morbid obesity: BMI 44. Complicates care. # DVT prophylaxis: Lovenox COVID prophylactic dose Disposition: She continues to improve very slowly we will continue to attempt weaning her off of Vapotherm she will likely end up needing to go home on supplemental oxygen. VS,Fishbone, I+O VS, Fishbone, I+O Vital Signs Date Time Temp Pulse Resp B/P (MAP) Pulse Ox O2 Delivery O2 Flow Rate FiO2 04/14/21 07:59 94 HVNI-Vapotherm 40.0 100 04/14/21 06:00 97.6 51 20 146/63 (90) I&O- Last 24 Hours up to 6 AM 04/14/21 06:00 Intake Total 960 ml Balance 960 ml BECKY GONCALVES MD April 14, 2021 09:00
[2021-04-14 18:25] VITALS: BP 105/54
[2021-04-14] MEDS: tiZANidine 4 MG TAB PO PRN (20:44)
[2021-04-14] MEDS: PERCOCET 5MG/325MG TAB PO PRN ×2 (20:45→23:16)
[2021-04-14 22:00] VITALS: BP 140/71
[2021-04-15] MEDS: LEVOTHYROXINE 150MCG TABLET (0.15MG) PO SCH (05:56)
[2021-04-15] MEDS: LEVOTHYROXINE 25MCG TABLET (0.025MG) PO SCH (05:56)
[2021-04-15] MEDS: ENOXAPARIN 60MG/0.6ML SYRINGE (J1650 PER 10MG) SC SCH ×2 (05:57→17:14)
[2021-04-15] MEDS: SODIUM CHLORIDE 0.9% INJ 10 ML SYR IV SCH ×2 (05:57→17:15)
[2021-04-15 06:00] VITALS: BP 106/69
[2021-04-15 07:03] LABS: FREE T4 1.28 NG/DL (0.76-1.46)
[2021-04-15] MEDS: ATORVASTATIN 20 MG TAB PO SCH (07:28)
[2021-04-15] MEDS: VENLAFAXINE **XR** 75MG CAPSULE PO SCH (07:28)
[2021-04-15 09:43] LABS: HEMATOCRIT 44.1 % (36.0-47.0); HEMOGLOBIN 13.9 g/dl (12.0-15.5); MEAN CORPUSCULAR HEMOGLOBIN 26.9 pg (27.0-33.0); MEAN CORPUSCULAR HGB CONC 31.5 g/dl (32.0-36.5); MEAN CORPUSCULAR VOLUME 85.3 fl (80.0-96.0); PLATELET COUNT, AUTOMATED 241 10^3/uL (150-450); RED BLOOD COUNT 5.17 10^6/uL (4.00-5.40); WHITE BLOOD COUNT 12.6 10^3/uL (4.0-10.0)
[2021-04-15] MEDS: dexameTHASONE 4 MG/ML 1ML VIAL (J1100 PER 1MG) IV SCH (09:51)
[2021-04-15 10:02] LABS: BLOOD UREA NITROGEN 23 MG/DL (7-18); CALCIUM LEVEL 8.9 MG/DL (8.8-10.2); CARBON DIOXIDE LEVEL 25 MEQ/L (21-32); CHLORIDE LEVEL 105 MEQ/L (98-107); CREATININE FOR GFR 0.68 MG/DL (0.55-1.30); GLOMERULAR FILTRATION RATE > 60.0 (>45); GLUCOSE, FASTING 74 MG/DL (70-100); POTASSIUM SERUM 4.4 MEQ/L (3.5-5.1); SODIUM LEVEL 137 MEQ/L (136-145)
--- NOTE | 2021-04-15 13:24 | IPNPDOC ---
Text Note Date of Service The patient was seen on 04/15/21. NOTE Subjective: -No acute overnight events -Currently on vapotherm down to 85% FiO2 and 35L/min, appears comfortable Objective: Constitutional: Awake and alert, in no apparent distress, ill appearing, obese ENT: Sclera are clear. Mucosa is moist. Respiratory: Diminished breath sounds bilaterally. No respiratory distress. On Vapotherm. Speaking comfortably. Cardiovascular: S1, S2, bradycardic, with regular rhythm, no murmurs Gastrointestinal: Abdomen is obese, soft, non distended, non tender, with normoactive sounds Extremities: Bilateral dependent lower extremity edema. No joint deformities. Otherwise WWP Neurologic: No focal neurological deficit. Mental Status: A&O x3, normal affect Skin: No visible rashes Labs: Reviewed. Pending AM labs TSH 1.15 free T4 1.28 Assessment: 61-year-old W with morbid obesity, CED on nocturnal BiPAP, osteoarthritis, hypothyroidism, hyperlipidemia, chronic back pain, who presented with dyspnea on exertion for 1 week and a productive sputum and admitted for Covid-19 infection with super-imposed bacterial PNA. # Acute Hypoxic respiratory failure in the setting of Covid 19 pneumonia infection with superimposed bacterial pneumonia: -Trend inflammatory markers, now downtrending -IV Decadron daily 6mg, day 11 -Lovenox COVID prophylactic dosing due to obesity. -Continue supplemental oxygen O2 target 88-92%. -May use home BiPAP machine. -Currently on Vapotherm. -s/p 5d of remdesevir. # Superimposed bacterial pneumonia: -s/p 8d of ceftriaxone, dc'd on 04/11 -BCx were negative -Has leukocytosis, likely steroid driven, will monitor -Procalcitonin downtrending -Repeat CXR was same as prior # UTI: On IV ceftriaxone, pansensitive. Now treated. -s/p ceftriaxone # Hypothyroidism: continue home Synthroid. # Chronic back pain: Continue Percocet and Advil as needed # CED: Can continue home BiPAP machine # Morbid obesity: BMI 44. Complicates care. # DVT prophylaxis: Lovenox COVID prophylactic dose Disposition: She continues to improve very slowly we will continue to attempt weaning her off of Vapotherm she will likely end up needing to go home on supplemental oxygen. VS,Fishbone, I+O VS, Fishbone, I+O Laboratory Tests 5/25/21 09:09 Vital Signs Date Time Temp Pulse Resp B/P (MAP) Pulse Ox O2 Delivery O2 Flow Rate FiO2 04/15/21 06:00 97.7 51 20 106/69 (81) 94 HVNI-Vapotherm 35.0 85 I&O- Last 24 Hours up to 6 AM 04/15/21 06:00 Intake Total 890 ml Output Total 900 ml Balance -10 ml BECKY GONCALVES MD April 15, 2021 08:18
[2021-04-15 18:39] VITALS: BP 108/63
[2021-04-15 20:00] VITALS: BP 112/60
[2021-04-15] MEDS: PERCOCET 5MG/325MG TAB PO PRN (21:02)
[2021-04-15] MEDS: tiZANidine 4 MG TAB PO PRN (21:03)
[2021-04-16] MEDS: LEVOTHYROXINE 150MCG TABLET (0.15MG) PO SCH (05:52)
[2021-04-16] MEDS: SODIUM CHLORIDE 0.9% INJ 10 ML SYR IV SCH ×2 (05:52→17:30)
[2021-04-16] MEDS: ENOXAPARIN 60MG/0.6ML SYRINGE (J1650 PER 10MG) SC SCH ×2 (05:52→17:29)
[2021-04-16] MEDS: LEVOTHYROXINE 25MCG TABLET (0.025MG) PO SCH (05:52)
[2021-04-16 06:00] VITALS: BP 109/53
[2021-04-16] MEDS: COMBIVENT RESPIMAT 100-20MCG INHALER 4GM INH PRN (06:12)
[2021-04-16 06:22] LABS: HEMATOCRIT 40.4 % (36.0-47.0); HEMOGLOBIN 13.1 g/dl (12.0-15.5); MEAN CORPUSCULAR HEMOGLOBIN 27.3 pg (27.0-33.0); MEAN CORPUSCULAR HGB CONC 32.4 g/dl (32.0-36.5); MEAN CORPUSCULAR VOLUME 84.3 fl (80.0-96.0); PLATELET COUNT, AUTOMATED 225 10^3/uL (150-450); RED BLOOD COUNT 4.79 10^6/uL (4.00-5.40); WHITE BLOOD COUNT 11.7 10^3/uL (4.0-10.0)
[2021-04-16 06:37] LABS: BLOOD UREA NITROGEN 24 MG/DL (7-18); CALCIUM LEVEL 8.8 MG/DL (8.8-10.2); CARBON DIOXIDE LEVEL 28 MEQ/L (21-32); CHLORIDE LEVEL 105 MEQ/L (98-107); GLOMERULAR FILTRATION RATE > 60.0 (>45); GLUCOSE, FASTING 78 MG/DL (70-100); POTASSIUM SERUM 4.3 MEQ/L (3.5-5.1); SODIUM LEVEL 139 MEQ/L (136-145)
[2021-04-16] MEDS: VENLAFAXINE **XR** 75MG CAPSULE PO SCH (08:34)
[2021-04-16] MEDS: dexameTHASONE 4 MG/ML 1ML VIAL (J1100 PER 1MG) IV SCH (08:34)
[2021-04-16] MEDS: ATORVASTATIN 20 MG TAB PO SCH (08:34)
[2021-04-16] MEDS: SODIUM CHLORIDE 0.9% INJ 10 ML SYR IV PRN (08:35)
--- NOTE | 2021-04-16 14:02 | IPNPDOC ---
Text Note Date of Service The patient was seen on 04/16/21. NOTE Subjective: -No acute overnight events -Finally off vapotherm, on HFNC 9L this AM Objective: Constitutional: Awake and alert, in no apparent distress, ill appearing, obese ENT: Sclera are clear. Mucosa is moist. Respiratory: Diminished breath sounds bilaterally. No respiratory distress. On HFNC. Speaking comfortably. Cardiovascular: S1, S2, bradycardic, with regular rhythm, no murmurs Gastrointestinal: Abdomen is obese, soft, non distended, non tender, with normoactive sounds Extremities: Bilateral dependent lower extremity edema. No joint deformities. Otherwise WWP Neurologic: No focal neurological deficit. Mental Status: A&O x3, normal affect Skin: No visible rashes Labs: Reviewed. Stable Assessment: 61-year-old W with morbid obesity, CED on nocturnal BiPAP, osteoarthritis, hypothyroidism, hyperlipidemia, chronic back pain, who presented with dyspnea on exertion for 1 week and a productive sputum and admitted for Covid-19 infection with super-imposed bacterial PNA. # Acute Hypoxic respiratory failure in the setting of Covid 19 pneumonia infection with superimposed bacterial pneumonia: -Trend inflammatory markers, now downtrending -IV Decadron daily 6mg, day 12 -Lovenox COVID prophylactic dosing due to obesity. -Continue supplemental oxygen O2 target 88-92%. -May use home BiPAP machine. -Currently on HFNC -s/p 5d of remdesevir. # Superimposed bacterial pneumonia: -s/p 8d of ceftriaxone, dc'd on 04/11 -BCx were negative -Has leukocytosis, likely steroid driven, will monitor -Procalcitonin downtrending -Repeat CXR was same as prior # UTI: On IV ceftriaxone, pansensitive. Now treated. -s/p ceftriaxone # Hypothyroidism: continue home Synthroid. # Chronic back pain: Continue Percocet and Advil as needed # CED: Can continue home BiPAP machine # Morbid obesity: BMI 44. Complicates care. # DVT prophylaxis: Lovenox COVID prophylactic dose Disposition: She continues to improve very slowly we will continue to attempt weaning her off of supplemental oxygen she will likely end up needing to go home on some once needing 5L or less. VS,Fishbone, I+O VS, Fishbone, I+O Laboratory Tests 04/16/21 05:59 Vital Signs Date Time Temp Pulse Resp B/P (MAP) Pulse Ox O2 Delivery O2 Flow Rate FiO2 04/16/21 06:00 97.3 54 20 109/53 (71) 91 High Flow Cannula 9.0 04/15/21 16:00 60 I&O- Last 24 Hours up to 6 AM 04/16/21 06:00 Intake Total 1060 ml Output Total 1625 ml Balance -565 ml BECKY GONCALVES MD April 16, 2021 07:51
[2021-04-16 14:04] VITALS: BP 128/58
[2021-04-16] MEDS: PERCOCET 5MG/325MG TAB PO PRN (20:52)
[2021-04-16] MEDS: tiZANidine 4 MG TAB PO PRN (20:53)
[2021-04-16 22:00] VITALS: BP 126/66
[2021-04-16] MEDS ORDERED: diphenhydrAMINE CREAM 30GM TOP PRN (23:10)
[2021-04-17] MEDS: ENOXAPARIN 60MG/0.6ML SYRINGE (J1650 PER 10MG) SC SCH ×2 (06:00→17:29)
[2021-04-17] MEDS: LEVOTHYROXINE 25MCG TABLET (0.025MG) PO SCH (06:00)
[2021-04-17] MEDS: LEVOTHYROXINE 150MCG TABLET (0.15MG) PO SCH (06:00)
[2021-04-17] MEDS: SODIUM CHLORIDE 0.9% INJ 10 ML SYR IV SCH ×2 (06:05→17:29)
[2021-04-17 06:07] LABS: HEMATOCRIT 41.4 % (36.0-47.0); HEMOGLOBIN 13.2 g/dl (12.0-15.5); MEAN CORPUSCULAR HEMOGLOBIN 27.2 pg (27.0-33.0); MEAN CORPUSCULAR HGB CONC 31.9 g/dl (32.0-36.5); MEAN CORPUSCULAR VOLUME 85.4 fl (80.0-96.0); PLATELET COUNT, AUTOMATED 223 10^3/uL (150-450); RED BLOOD COUNT 4.85 10^6/uL (4.00-5.40); WHITE BLOOD COUNT 11.6 10^3/uL (4.0-10.0)
[2021-04-17 06:34] LABS: BLOOD UREA NITROGEN 25 MG/DL (7-18); CALCIUM LEVEL 8.6 MG/DL (8.8-10.2); CARBON DIOXIDE LEVEL 28 MEQ/L (21-32); CHLORIDE LEVEL 108 MEQ/L (98-107); CREATININE FOR GFR 0.64 MG/DL (0.55-1.30); GLOMERULAR FILTRATION RATE > 60.0 (>45); GLUCOSE, FASTING 75 MG/DL (70-100); POTASSIUM SERUM 4.6 MEQ/L (3.5-5.1); SODIUM LEVEL 141 MEQ/L (136-145)
[2021-04-17] MEDS: ATORVASTATIN 20 MG TAB PO SCH (09:23)
[2021-04-17] MEDS: VENLAFAXINE **XR** 75MG CAPSULE PO SCH (09:23)
[2021-04-17] MEDS: SODIUM CHLORIDE 0.9% INJ 10 ML SYR IV PRN (09:24)
[2021-04-17] MEDS: dexameTHASONE 4 MG/ML 1ML VIAL (J1100 PER 1MG) IV SCH (09:24)
--- NOTE | 2021-04-17 10:43 | IPNPDOC ---
Text Note Date of Service The patient was seen on 04/17/21. NOTE Subjective: -No acute overnight events -Finally off vapotherm, on HFNC 11L this AM Objective: Constitutional: Awake and alert, in no apparent distress, ill appearing, obese ENT: Sclera are clear. Mucosa is moist. Respiratory: Diminished breath sounds bilaterally. No respiratory distress. On HFNC. Speaking comfortably. Cardiovascular: S1, S2, bradycardic, with regular rhythm, no murmurs Gastrointestinal: Abdomen is obese, soft, non distended, non tender, with normoactive sounds Extremities: Bilateral dependent lower extremity edema. No joint deformities. Otherwise WWP Neurologic: No focal neurological deficit. Mental Status: A&O x3, normal affect Skin: No visible rashes Labs: Reviewed. Stable Assessment: 61-year-old W with morbid obesity, CED on nocturnal BiPAP, osteoarthritis, hypothyroidism, hyperlipidemia, chronic back pain, who presented with dyspnea on exertion for 1 week and a productive sputum and admitted for Covid-19 infection with super-imposed bacterial PNA. # Acute Hypoxic respiratory failure in the setting of Covid 19 pneumonia infection with superimposed bacterial pneumonia: -Trend inflammatory markers, now downtrending -IV Decadron daily 6mg, day 13 -Lovenox COVID prophylactic dosing due to obesity. -Continue supplemental oxygen O2 target 88-92%. -May use home BiPAP machine. -Currently on HFNC -s/p 5d of remdesevir. # Superimposed bacterial pneumonia: -s/p 8d of ceftriaxone, dc'd on 04/11 -BCx were negative -Has leukocytosis, likely steroid driven, will monitor -Procalcitonin downtrending -Repeat CXR was same as prior # UTI: On IV ceftriaxone, pansensitive. Now treated. -s/p ceftriaxone # Hypothyroidism: continue home Synthroid. # Chronic back pain: Continue Percocet and Advil as needed # CED: Can continue home BiPAP machine # Morbid obesity: BMI 44. Complicates care. # DVT prophylaxis: Lovenox COVID prophylactic dose Disposition: She continues to improve very slowly we will continue to attempt weaning her off of supplemental oxygen she will likely end up needing to go home on some once needing 5L or less. VS,Fishbone, I+O VS, Fishbone, I+O Laboratory Tests 04/17/21 05:58 Vital Signs Date Time Temp Pulse Resp B/P (MAP) Pulse Ox O2 Delivery O2 Flow Rate FiO2 04/16/21 22:00 10.0 04/16/21 22:00 98.2 51 18 126/66 (86) 93 High Flow Cannula 04/15/21 16:00 60 I&O- Last 24 Hours up to 6 AM 04/17/21 06:00 Intake Total 560 ml Output Total 200 ml Balance 360 ml BECKY GONCALVES MD April 17, 2021 08:55
[2021-04-17 14:00] VITALS: BP 119/91
[2021-04-17 20:00] VITALS: BP 120/59
[2021-04-17] MEDS: PERCOCET 5MG/325MG TAB PO PRN (21:25)
[2021-04-17] MEDS: tiZANidine 4 MG TAB PO PRN (21:25)
[2021-04-18] MEDS: LEVOTHYROXINE 25MCG TABLET (0.025MG) PO SCH (05:17)
[2021-04-18] MEDS: ENOXAPARIN 60MG/0.6ML SYRINGE (J1650 PER 10MG) SC SCH ×2 (05:17→17:39)
[2021-04-18] MEDS: LEVOTHYROXINE 150MCG TABLET (0.15MG) PO SCH (05:17)
[2021-04-18] MEDS: SODIUM CHLORIDE 0.9% INJ 10 ML SYR IV SCH ×2 (05:18→17:39)
[2021-04-18 05:45] VITALS: BP 152/67
[2021-04-18 07:26] LABS: HEMATOCRIT 43.3 % (36.0-47.0); HEMOGLOBIN 13.6 g/dl (12.0-15.5); MEAN CORPUSCULAR HEMOGLOBIN 27.1 pg (27.0-33.0); MEAN CORPUSCULAR HGB CONC 31.4 g/dl (32.0-36.5); MEAN CORPUSCULAR VOLUME 86.3 fl (80.0-96.0); PLATELET COUNT, AUTOMATED 237 10^3/uL (150-450); RED BLOOD COUNT 5.02 10^6/uL (4.00-5.40)
[2021-04-18 07:52] LABS: BLOOD UREA NITROGEN 28 MG/DL (7-18); CALCIUM LEVEL 9.6 MG/DL (8.8-10.2); CARBON DIOXIDE LEVEL 28 MEQ/L (21-32); CHLORIDE LEVEL 105 MEQ/L (98-107); CREATININE FOR GFR 0.67 MG/DL (0.55-1.30); GLOMERULAR FILTRATION RATE > 60.0 (>45); GLUCOSE, FASTING 79 MG/DL (70-100); POTASSIUM SERUM 4.4 MEQ/L (3.5-5.1); SODIUM LEVEL 142 MEQ/L (136-145)
[2021-04-18] MEDS: ATORVASTATIN 20 MG TAB PO SCH (08:35)
[2021-04-18] MEDS: VENLAFAXINE **XR** 75MG CAPSULE PO SCH (08:35)
[2021-04-18] MEDS: dexameTHASONE 4 MG/ML 1ML VIAL (J1100 PER 1MG) IV SCH (08:35)
[2021-04-18] MEDS: SODIUM CHLORIDE 0.9% INJ 10 ML SYR IV PRN (08:36)
--- NOTE | 2021-04-18 08:45 | IPNPDOC ---
Text Note Date of Service The patient was seen on 04/18/21. NOTE Subjective: -No acute overnight events -On HFNC 10L this AM Objective: Constitutional: Awake and alert, in no apparent distress, ill appearing, obese ENT: Sclera are clear. Mucosa is moist. Respiratory: Diminished breath sounds bilaterally. No respiratory distress. On HFNC. Speaking comfortably. Cardiovascular: S1, S2, bradycardic, with regular rhythm, no murmurs Gastrointestinal: Abdomen is obese, soft, non distended, non tender, with normoactive sounds Extremities: Bilateral dependent lower extremity edema. No joint deformities. Otherwise WWP Neurologic: No focal neurological deficit. Mental Status: A&O x3, normal affect Skin: No visible rashes Labs: Reviewed. Stable Assessment: 61-year-old W with morbid obesity, CED on nocturnal BiPAP, osteoarthritis, hy pothyroidism, hyperlipidemia, chronic back pain, who presented with dyspnea on exertion for 1 week and a productive sputum and admitted for Covid-19 infection with super-imposed bacterial PNA. # Acute Hypoxic respiratory failure in the setting of Covid 19 pneumonia infection with superimposed bacterial pneumonia: -Trend inflammatory markers, now downtrending -IV Decadron daily 6mg, day 14 -Lovenox COVID prophylactic dosing due to obesity. -Continue supplemental oxygen O2 target 88-92%. -May use home BiPAP machine. -Currently on HFNC -s/p 5d of remdesevir. # Superimposed bacterial pneumonia: -s/p 8d of ceftriaxone, dc'd on 04/11 -BCx were negative -Has leukocytosis, likely steroid driven, will monitor -Procalcitonin downtrending -Repeat CXR was same as prior # UTI: On IV ceftriaxone, pansensitive. Now treated. -s/p ceftriaxone # Hypothyroidism: continue home Synthroid. # Chronic back pain: Continue Percocet and Advil as needed # CED: Can continue home BiPAP machine # Morbid obesity: BMI 44. Complicates care. # DVT prophylaxis: Lovenox COVID prophylactic dose Disposition: She continues to improve very slowly we will continue to attempt weaning her off of supplemental oxygen she will likely end up needing to go home on some once needing 5L or less. VS,Fishbone, I+O VS, Fishbone, I+O Laboratory Tests 04/18/21 05:16 Vital Signs Date Time Temp Pulse Resp B/P (MAP) Pulse Ox O2 Delivery O2 Flow Rate FiO2 04/18/21 05:45 97.4 44 17 152/67 (95) 90 High Flow Cannula 10.0 04/15/21 16:00 60 I&O- Last 24 Hours up to 6 AM 04/18/21 06:00 Intake Total 1400 ml Output Total 1550 ml Balance -150 ml BECKY GONCALVES MD April 18, 2021 08:45
[2021-04-18 14:00] VITALS: BP 115/56
[2021-04-18] MEDS: PERCOCET 5MG/325MG TAB PO PRN (21:19)
[2021-04-18 21:21] VITALS: BP 147/63
[2021-04-18] MEDS: tiZANidine 4 MG TAB PO PRN (21:29)
[2021-04-19] MEDS: LEVOTHYROXINE 25MCG TABLET (0.025MG) PO SCH (06:21)
[2021-04-19] MEDS: LEVOTHYROXINE 150MCG TABLET (0.15MG) PO SCH (06:21)
[2021-04-19] MEDS: SODIUM CHLORIDE 0.9% INJ 10 ML SYR IV SCH ×2 (06:22→17:45)
[2021-04-19] MEDS: ENOXAPARIN 60MG/0.6ML SYRINGE (J1650 PER 10MG) SC SCH ×2 (06:23→17:45)
[2021-04-19 06:39] VITALS: BP 121/56
[2021-04-19 06:56] LABS: HEMATOCRIT 41.4 % (36.0-47.0); HEMOGLOBIN 13.4 g/dl (12.0-15.5); MEAN CORPUSCULAR HEMOGLOBIN 27.7 pg (27.0-33.0); MEAN CORPUSCULAR HGB CONC 32.4 g/dl (32.0-36.5); MEAN CORPUSCULAR VOLUME 85.7 fl (80.0-96.0); PLATELET COUNT, AUTOMATED 212 10^3/uL (150-450); RED BLOOD COUNT 4.83 10^6/uL (4.00-5.40); WHITE BLOOD COUNT 11.5 10^3/uL (4.0-10.0)
[2021-04-19 07:16] LABS: BLOOD UREA NITROGEN 26 MG/DL (7-18); CALCIUM LEVEL 8.4 MG/DL (8.8-10.2); CARBON DIOXIDE LEVEL 27 MEQ/L (21-32); CHLORIDE LEVEL 107 MEQ/L (98-107); CREATININE FOR GFR 0.64 MG/DL (0.55-1.30); GLOMERULAR FILTRATION RATE > 60.0 (>45); GLUCOSE, FASTING 77 MG/DL (70-100); POTASSIUM SERUM 4.3 MEQ/L (3.5-5.1); SODIUM LEVEL 141 MEQ/L (136-145)
[2021-04-19] MEDS: VENLAFAXINE **XR** 75MG CAPSULE PO SCH (08:28)
[2021-04-19] MEDS: dexameTHASONE 4 MG/ML 1ML VIAL (J1100 PER 1MG) IV SCH (08:28)
[2021-04-19] MEDS: ATORVASTATIN 20 MG TAB PO SCH (08:28)
[2021-04-19] MEDS: VITAMIN D 50,000 UNITS CAPSULE (ERGOCALCIFEROL 1.25MG) PO SCH (08:28)
[2021-04-19] MEDS: SODIUM CHLORIDE 0.9% INJ 10 ML SYR IV PRN (08:29)
--- NOTE | 2021-04-19 10:57 | IPNPDOC ---
Text Note Date of Service The patient was seen on 04/19/21. NOTE Subjective: -No acute overnight events -On 6L this AM! Very happy with this improvement. Objective: Constitutional: Awake and alert, in no apparent distress, ill appearing, obese ENT: Sclera are clear. Mucosa is moist. Respiratory: Diminished breath sounds bilaterally. No respiratory distress. On HFNC. Speaking comfortably. Cardiovascular: S1, S2, bradycardic, with regular rhythm, no murmurs Gastrointestinal: Abdomen is obese, soft, non distended, non tender, with norm oactive sounds Extremities: Bilateral dependent lower extremity edema. No joint deformities. Otherwise WWP Neurologic: No focal neurological deficit. Mental Status: A&O x3, normal affect Skin: No visible rashes Labs: Reviewed. Stable Assessment: 61-year-old W with morbid obesity, CED on nocturnal BiPAP, osteoarthritis, hypothyroidism, hyperlipidemia, chronic back pain, who presented with dyspnea on exertion for 1 week and a productive sputum and admitted for Covid-19 infection with super-imposed bacterial PNA. # Acute Hypoxic respiratory failure in the setting of Covid 19 pneumonia infe ction with superimposed bacterial pneumonia: -Trend inflammatory markers, now downtrending -IV Decadron daily 6mg, day 15. Will dc tomorrow AM and begin a slow pred taper tomorrow AM -Lovenox COVID prophylactic dosing due to obesity. -Continue supplemental oxygen O2 target 88-92%. -May use home BiPAP machine. -Currently on HFNC -s/p 5d of remdesevir. # Superimposed bacterial pneumonia: -s/p 8d of ceftriaxone, dc'd on 04/11 -BCx were negative -Has leukocytosis, likely steroid driven, will monitor -Procalcitonin downtrending -Repeat CXR was same as prior # UTI: s/p IV ceftriaxone, pansensitive. Now treated. -s/p ceftriaxone # Hypothyroidism: continue home Synthroid. # Chronic back pain: Continue Percocet and Advil as needed # CED: Can continue home BiPAP machine # Morbid obesity: BMI 44. Complicates care. # DVT prophylaxis: Lovenox COVID prophylactic dose Disposition: She continues to improve very slowly we will continue to attempt weaning her off of supplemental oxygen she will likely end up needing to go home on some once needing 5L or less. VS,Fishbone, I+O VS, Fishbone, I+O Laboratory Tests 04/19/21 06:25 Vital Signs Date Time Temp Pulse Resp B/P (MAP) Pulse Ox O2 Delivery O2 Flow Rate FiO2 04/19/21 08:00 6.0 04/19/21 06:39 96.1 47 20 121/56 (77) 92 Nasal Cannula 04/15/21 16:00 60 I&O- Last 24 Hours up to 6 AM 04/19/21 06:00 Intake Total 1080 ml Output Total 600 ml Balance 480 ml BECKY GONCALVES MD April 19, 2021 09:30
[2021-04-19 13:17] VITALS: BP 105/55
[2021-04-19] MEDS ORDERED: SODIUM CHLORIDE NASAL 0.65% SPRAY BTL (OCEAN) PRN (17:00)
[2021-04-19 20:00] VITALS: BP 131/76
[2021-04-19] MEDS: PERCOCET 5MG/325MG TAB PO PRN (21:03)
[2021-04-20] MEDS: LEVOTHYROXINE 150MCG TABLET (0.15MG) PO SCH (05:39)
[2021-04-20] MEDS: LEVOTHYROXINE 25MCG TABLET (0.025MG) PO SCH (05:39)
[2021-04-20] MEDS: SODIUM CHLORIDE 0.9% INJ 10 ML SYR IV SCH (05:40)
[2021-04-20] MEDS: ENOXAPARIN 60MG/0.6ML SYRINGE (J1650 PER 10MG) SC SCH (05:40)
[2021-04-20 06:00] VITALS: BP 130/63
[2021-04-20 06:04] LABS: HEMATOCRIT 42.6 % (36.0-47.0); HEMOGLOBIN 13.3 g/dl (12.0-15.5); MEAN CORPUSCULAR HEMOGLOBIN 26.9 pg (27.0-33.0); MEAN CORPUSCULAR HGB CONC 31.2 g/dl (32.0-36.5); MEAN CORPUSCULAR VOLUME 86.2 fl (80.0-96.0); PLATELET COUNT, AUTOMATED 211 10^3/uL (150-450); RED BLOOD COUNT 4.94 10^6/uL (4.00-5.40); WHITE BLOOD COUNT 10.7 10^3/uL (4.0-10.0)
[2021-04-20 06:25] LABS: BLOOD UREA NITROGEN 29 MG/DL (7-18); CALCIUM LEVEL 8.3 MG/DL (8.8-10.2); CARBON DIOXIDE LEVEL 27 MEQ/L (21-32); CHLORIDE LEVEL 108 MEQ/L (98-107); CREATININE FOR GFR 0.61 MG/DL (0.55-1.30); GLOMERULAR FILTRATION RATE > 60.0 (>45); GLUCOSE, FASTING 80 MG/DL (70-100); POTASSIUM SERUM 4.3 MEQ/L (3.5-5.1); SODIUM LEVEL 142 MEQ/L (136-145)
[2021-04-20] MEDS ORDERED: ECOT81TA5 PO (07:39)
[2021-04-20] MEDS ORDERED: COMBAER6 INH (07:39)
[2021-04-20] MEDS ORDERED: GUAI100S51 PO (07:39)
[2021-04-20] MEDS ORDERED: PRED10TA2 PO (07:39)
--- NOTE | 2021-04-20 08:03 | DS.PDOC ---
Discharge Summary General Date of Admission April 06, 2021 at 07:30 Date of Discharge 04/20/2021 Attending Physician: BECKY GONCALVES MD Discharge Summary PROCEDURES PERFORMED DURING STAY: PICC line placement on 04/10 for difficult access. ADMITTING DIAGNOSES: Covid-19 PNA UTI Acute hypoxemic respiratory failure DISCHARGE DIAGNOSES: Covid-19 PNA E.coli UTI Acute hypoxemic respiratory failure CAP MARLENI not compliant with CPAP Morbid obesity Hypothyroidism HLD COMPLICATIONS/CHIEF COMPLAINT: Covid 19, Uti. HISTORY OF PRESENT ILLNESS: 61 y/o very pleasant lady with a history of chronic back/leg pain, hld, hypothyroidism and marleni who presented to the ED after developing acute onset weakness that has gradually worsened over one week reporting that she started to feel ill about a week prior to presentation with general malaise and fatigue that got steadily worse and subsequently developed some mild sob, cough, fevers and chills, as well as some episodes of urinary incontinence without burning or hematuria. HOSPITAL COURSE: In the ED she was found to have covid-19 infection with hypoxemic respiratory failure requiring 5L NC to achieve a saturation above 88%. CTA showed diffuse GGOs without out a PE and with an elevated procalcitonin and leukocytosis she was presumed to have a superimposed CAP for which she received a full course of antibiotics with ceftriaxone for a total of 8 days. Her UA was positive and UCx eventually grew pansensitive E.coli that was also treated by the 8d of ceftriaxone with resolution of the urinary incontinence and urgency. With regard to her acute hypoxemic respiratory failure, it got worse to the degree that she was placed on vaportherm with several days on 100% FiO2 and 40L/min and was given a full 5d course of remedesevir and was on IV dexamethasone for 18 days and then transitioned to a PO prednisone taper. Her hypoxemia eventually slowly improved as she came off the vapotherm to [facility] and is now being discharged home on 5L NC saturating 91% with anticipation that she will require the oxygen for a few more weeks as the hypoxemia slowly resolves. She will continue a prednisone taper, symbicort, guaifenesin for cough and will take ASA 81mg daily for the next 30 days, and will follow up with her PCP within 7d of hospital discharge. DISCHARGE MEDICATIONS: Please see below. ALLERGIES: Please see below. PHYSICAL EXAMINATION ON DISCHARGE: VITAL SIGNS: Please see below. Constitutional: Awake and alert, in no apparent distress, ill appearing, obese ENT: Sclera are clear. Mucosa is moist. Respiratory: Diminished breath sounds bilaterally. No respiratory distress. On HFNC. Speaking comfortably. Cardiovascular: S1, S2, bradycardic, with regular rhythm, no murmurs Gastrointestinal: Abdomen is obese, soft, non distended, non tender, with normoactive sounds Extremities: Bilateral dependent lower extremity edema. No joint deformities. Otherwise WWP Neurologic: No focal neurological deficit. Mental Status: A&O x3, normal affect Skin: No visible rashes LABORATORY DATA: Please see below. IMAGIN/15 CXR: There is cardiomegaly. There is vascular congestion. There are diffuse bilateral infiltrates. The findings are most consistent with CHF and pulmonary edema. Superimposed pneumonia is not excluded. There are degenerative changes of the spine. IMPRESSION: Cardiomegaly and vascular congestion. Diffuse bilateral infiltrates are presenting pulmonary edema and/ or pneumonic infiltrate. 04/[address]: Vertebrae: Degenerative disc disease and facet arthrosis throughout the lumbar spine. No fracture. L1-L2: No significant disc protrusion. No severe spinal canal stenosis. No significant neural foraminal narrowing. L2-L3: Mild degenerative disc disease and facet arthrosis. No disc herniation or spinal stenosis identified. L3-L4: Posterior broad-based disc protrusion and bilateral facet hypertrophy resulting in mild spinal stenosis. L4-L5: Grade 1 anterolisthesis of L4. Posterior broad-based disc protrusion and bilateral facet hypertrophy. Mild to moderate spinal stenosis. Bilateral lateral recess stenosis. L5-S1: Mild degenerative disc disease and facet arthrosis. No disc herniation or spinal stenosis identified. Lungs: Patchy bibasilar lung opacities, indeterminate. Vasculature: Mild atherosclerosis of the abdominal aorta and iliac arteries. No aneurysm. Soft tissues: Unremarkable. IMPRESSION: 1. Patchy bibasilar lung opacities, indeterminate. 2. Degenerative spondylosis of the lumbar spine. 3. Mild spinal stenosis at L3-L4 and mild to moderate spinal stenosis at L4-L5. If there is a continued clinical concern for disc herniation or other spinal canal abnormality then consider further evaluation with MRI. 04/04 Lumbar spine MRI: Vertebrae: Hemangioma within the L1 vertebral body. No fracture. Spinal cord: The lower thoracic cord is unremarkable and the conus terminates at the level of the L1 inferior endplate. L1-L2: No significant disc disease. No significant spinal canal stenosis. No neural foraminal stenosis. L2-L3: No significant disc disease. No significant spinal canal stenosis. No neural foraminal stenosis. L3-L4: Mild posterior broad-based disc protrusion. Bilateral facet hypertrophy and ligamentum flavum thickening. No focal disc protrusion or nerve root impingement. Mild spinal stenosis. Bilateral lateral recess stenosis. L4-L5: Grade 1 anterolisthesis of L4. Mild posterior broad-based disc protrusion. Bilateral facet hypertrophy and ligamentum flavum thickening. No focal disc protrusion. Mild spinal stenosis. Bilateral lateral recess stenosis. L5-S1: No disc herniation. Bilateral facet hypertrophy, worse on the right. No nerve root impingement or spinal stenosis. Soft tissues: Unremarkable. IMPRESSION: Degenerative spondylosis of the lumbar spine as described above. 04/04 CTA chest: Limitations: Evaluation of the peripheral pulmonary vasculature is suboptimal secondary to motion induced image degradation. Pulmonary arteries: No filling defects are identified within the main pulmonary trunk, right or left main pulmonary arteries or central lobar arteries to indicate pulmonary embolus. Aorta: Mild atherosclerosis of the thoracic aorta without aneurysm or dissection. Lungs: There are peripheral bilateral ground-glass opacities with areas of consolidation and interlobular lines which are commonly reported imaging features of COVID-19 pneumonia. Other underlying parenchymal lesions are not excluded. Follow-up imaging is recommended to confirm resolution. Pleural spaces: Unremarkable. No pneumothorax. No pleural effusion. Heart: Mild coronary atherosclerosis. Lymph nodes: Unremarkable. No enlarged lymph nodes. Bones/joints: Degenerative spondylosis of the thoracic spine. No fracture. Soft tissues: Unremarkable. IMPRESSION: 1. No pulmonary embolism identified within the main pulmonary trunk, right or left main pulmonary arteries or central lobar arteries. 2. Commonly reported imaging features of COVID-19 pneumonia are present. Other processes such as influenza pneumonia and organizing pneumonia, as can be seen with drug toxicity and connective tissue disease, can cause a similar imaging pattern. Other underlying parenchymal lesions are not excluded. Follow-up imaging is recommended to confirm resolution. 04/13 CXR: Diffuse bilateral infiltrates essentially unchanged from prior examination when allowing for variation in technique. No obvious effusion. No obvious pneumothorax. Left PICC line with tip in the brachiocephalic vein. Cardiac silhouette is normal. Skeletal structures intact. IMPRESSION: Diffuse bilateral infiltrates. No significant change from prior examination. PROGNOSIS: Good ACTIVITY: As tolerated DIET: Regular DISCHARGE PLAN: Home with prednisone taper, symbicort, ASA 81, guaifenesin and supplemental oxygen, with close PCP follow up. To self isolate for 14days until resolution of all symptoms. DISPOSITION: Home with services DISCHARGE INSTRUCTIONS: Home with prednisone taper, symbicort, ASA 81, guaifenesin and supplemental oxygen, with close PCP follow up. To self isolate for 14days until resolution of all symptoms. ITEMS TO FOLLOWUP ON ON OUTPATIENT: Resolution of covid-19 PNA Resolution of acute hypoxemic respiratory failure Morbid obesity, PCP evaluation and likely referral to bariatric surgery DISCHARGE CONDITION: Stable TIME SPENT ON DISCHARGE: 50 minutes. Vital Signs/I&Os Vital Signs Date Time Temp Pulse Resp B/P (MAP) Pulse Ox O2 Delivery O2 Flow Rate FiO2 04/20/21 06:00 97.0 45 18 130/63 (85) 90 High Flow Cannula 5.0 04/15/21 16:00 60 I&O- Last 24 Hours up to 6 AM 04/20/21 06:00 Intake Total 480 ml Output Total 1600 ml Balance -1120 ml Laboratory Data Labs 24H Laboratory Tests 2 04/20/21 05:45: Nucleated Red Blood Cells % (auto) 0.0, Anion Gap 7L, Glomerular Filtration Rate > 60.0, Calcium Level 8.3L CBC/BMP Laboratory Tests 04/20/21 05:45 Discharge Medications Scheduled Aspirin (Ecotrin) 81 Mg Tablet.dr, 1 TAB PO DAILY for pain Atorvastatin Calcium (Atorvastatin Calcium) 20 Mg Tablet, 20 MG PO DAILY, (Reported) Ergocalciferol (Vitamin D2) (Vitamin D2) 50,000 Units Cap, 1 CAP PO 1XWK, (Reported) SUNDAYS Levothyroxine Sodium (Levothyroxine Sodium) 150 Mcg Tablet, 150 MCG PO DAILY, (Reported) Levothyroxine Sodium (Levothyroxine Sodium) 25 Mcg Tablet, 25 MCG PO DAILY, (Reported) Prednisone (Prednisone) 10 Mg Tablet, 1 TAB PO ASDIRECTED 40mg daily for 3d, then 30mg daily for 4d, then 20mg daily for 4d, then 10mg daily for 4d. Venlafaxine HCl (Venlafaxine HCl ER) 150 Mg Cap.er.24h, 150 MG PO DAILY, (Reported) Scheduled PRN Diclofenac Sodium (Diclofenac Sodium) 1% 100GM Gel..gram., 1 DOSE TOP PRN PRN for PAIN, (Reported) USE FOR KNEE PAIN Guaifenesin (Guaifenesin) 100 Mg/5 Ml Liquid, 10 ML PO Q6HP PRN for COUGH Hydrocodone/Acetaminophen (Hydrocodone-Acetamin 10-325 mg) 1 Each Tablet, 1 TAB PO QID PRN for PAIN, (Reported) Ibuprofen (Ibuprofen) 800 Mg Tablet, 800 MG PO TID PRN for PAIN, (Reported) Ipratropium/Albuterol Sulfate (Combivent Respimat 20-100 Mcg) 4 Gm Mist.inhal, 1 PUFF INH Q6HP PRN for SHORTNESS OF BREATH Lidocaine HCl (Aspercreme) 4% Cream..g., 1 DOSE TOP PRN PRN for PAIN, (Reported) Tizanidine HCl (Tizanidine HCl) 2 Mg Tablet, 2 MG PO BID PRN for MUSCLE SPASMS, (Reported) Allergies Coded Allergies: No Known Allergies (Unverified , 04/04/21) BECKY GONCALVES MD April 20, 2021 08:03
[2021-04-20] MEDS: ATORVASTATIN 20 MG TAB PO SCH (08:37)
[2021-04-20] MEDS: VENLAFAXINE **XR** 75MG CAPSULE PO SCH (08:38)
[2021-04-20] MEDS ORDERED: predniSONE 20 MG TAB PO SCH (09:00)
== END 2021-04-20 12:45 | disposition home health service (06) | DRG 137 ==
LOC: M ED 14:14 → EDBD 14:14 → M ED INP 14:15 → ENRESERV 21:08 → M 4MAIN 21:53 → M ICU 04-05 09:58 → OBSVTOIN 04-06 07:30 → M 4MAIN 04-09 17:42
PROVIDERS: ADMIT Internal Medicine; ATTEND Internal Medicine
PROC: 02HV33Z Insertion of Infusion Device into Superior Vena Cava, Percutaneous Approach (ICD-10-PCS; principal; 2021-04-10 14:00)
DX: U07.1 COVID-19 (principal); J96.01 Acute respiratory failure with hypoxia; J12.82 Pneumonia due to coronavirus disease 2019; J15.9 Unspecified bacterial pneumonia; J81.1 Chronic pulmonary edema; E66.01 Morbid (severe) obesity due to excess calories; Z68.41 Body mass index [BMI] 40.0-44.9, adult; N39.0 Urinary tract infection, site not specified; B96.29 Other Escherichia coli [E. coli] as the cause of diseases classified elsewhere; G47.33 Obstructive sleep apnea (adult) (pediatric); Z91.19 Patient's noncompliance with other medical treatment and regimen; E03.9 Hypothyroidism, unspecified; Z79.899 Other long term (current) drug therapy; Z79.82 Long term (current) use of aspirin; F32.9 Major depressive disorder, single episode, unspecified; G89.29 Other chronic pain; M19.90 Unspecified osteoarthritis, unspecified site; E78.5 Hyperlipidemia, unspecified

== ENCOUNTER → 2021-06-10 | Outpatient (CLI) | payer OTHER ==
[~2021-06-10] MED LIST changes: -BUPIVACAINE HCL 0.25% 10ML VIAL As Ordered ONE; -BUPIVACAINE HCL 0.25% 30ML VIAL As Ordered ONE; +COMBAER6 INH; +ECOT81TA5 PO; +ERGO500029 PO; +GUAI100S51 PO; -NORCO, ANEXSIA 5/325MG TABLET (HYDROcodone/ACETAMINOPHEN) As Ordered ONE; +PRED10TA2 PO; -TRIAMCINOLONE ACETONIDE SUSP 40 MG/ML VIAL (J3301) As Ordered ONE; -VITA50005 PO; -diazePAM 5MG TABLET As Ordered ONE
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
== END ==
LOC: M PAIN 11:00
PROVIDERS: ATTEND Nurse Practitioner Family
DX: M15.9 Polyosteoarthritis, unspecified (principal); M47.817 Spondylosis without myelopathy or radiculopathy, lumbosacral region; G89.29 Other chronic pain; E03.9 Hypothyroidism, unspecified; G47.30 Sleep apnea, unspecified; E55.9 Vitamin D deficiency, unspecified; Z87.891 Personal history of nicotine dependence; Z88.8 Allergy status to other drugs, medicaments and biological substances; Z91.040 Latex allergy status; E66.01 Morbid (severe) obesity due to excess calories; Z68.42 Body mass index [BMI] 45.0-49.9, adult; Z79.899 Other long term (current) drug therapy

== ENCOUNTER → 2021-08-05 | Outpatient (CLI) | payer OTHER | LOC: M PAIN 10:00 | PROVIDERS: ATTEND Anesthesiology | DX: M79.18 Myalgia, other site (principal); M15.9 Polyosteoarthritis, unspecified; E03.9 Hypothyroidism, unspecified; G47.30 Sleep apnea, unspecified; E55.9 Vitamin D deficiency, unspecified; Z87.891 Personal history of nicotine dependence; Z88.8 Allergy status to other drugs, medicaments and biological substances; Z91.040 Latex allergy status; E66.01 Morbid (severe) obesity due to excess calories; Z68.42 Body mass index [BMI] 45.0-49.9, adult; Z79.899 Other long term (current) drug therapy ==

== ENCOUNTER 2024-09-10 08:45 | Day surgery (SDC) | payer OTHER ==
[~2024-09-10] VITALS: Ht 162.6 cm; Wt 100.5 kg
[~2024-09-10 08:45] MED LIST changes: -ASPE16CR TOP; +BUPR150T12 PO; +CO Q200C10 PO; +DICL100G10 TOP; -DICL1GEL3 TOP; +GING1CAP PO; +HYDR-3363 PO; +LEVO137T2 PO; +LIDO76.52 TOP; +LR 1,000 ML IV SCH; +MAGN400C PO; +MULTTAB79 PO; +OSTETAB2 PO; +SEMA1PEN2 SC; +VITA1CAP25 PO
[2024-09-10] MEDS ORDERED: fentaNYL 100 MCG/2 ML INJECTION As Ordered ONE (10:02)
[2024-09-10] MEDS ORDERED: MIDAZOLAM INJ 2MG/2ML VIAL As Ordered ONE (10:02)
[2024-09-10] MEDS: TETRACAINE 0.5% OPHTH SOLN 4ML OS SCH (10:18)
[2024-09-10] MEDS: ATROPINE SULFATE 1% OPHTH SOLN 2ML BTL OS SCH (10:18)
[2024-09-10] MEDS: PHENYLEPHRINE 2.5% OPHTH SOL 2ML OS SCH (10:18)
[2024-09-10] MEDS: FLURBIPROFEN 0.03% OPHTH SOLN 2.5 ML OS SCH (10:18)
[2024-09-10] MEDS: LIDOCAINE 1% SDV 5ML VIAL As Ordered ONE (11:31)
[2024-09-10] MEDS: CEFUROXIME 1MG/0.1ML INTRACAMERAL INJ As Ordered ONE (11:31)
[2024-09-10 11:49] VITALS: BP 153/73; TEMP 97.4; O2SAT 98
== END 2024-09-10 12:12 | disposition home or self-care (01) ==
LOC: M SDC 08:45
PROVIDERS: ATTEND Ophthalmology
DX: H25.012 Cortical age-related cataract, left eye (principal); I10 Essential (primary) hypertension; E78.5 Hyperlipidemia, unspecified; E03.9 Hypothyroidism, unspecified; F41.9 Anxiety disorder, unspecified; G47.33 Obstructive sleep apnea (adult) (pediatric); Z79.899 Other long term (current) drug therapy
CPT/HCPCS: 66984; J0697; J2250; J3010; V2632

== ENCOUNTER 2024-09-17 08:42 | Day surgery (SDC) | payer OTHER ==
[~2024-09-17] VITALS: Ht 162.6 cm; Wt 101.3 kg
[~2024-09-17 08:42] MED LIST changes: +CEFUROXIME 1MG/0.1ML INTRACAMERAL INJ As Ordered ONE
[2024-09-17] MEDS ORDERED: MIDAZOLAM INJ 2MG/2ML VIAL As Ordered ONE (08:54)
[2024-09-17] MEDS: ATROPINE SULFATE 1% OPHTH SOLN 2ML BTL OD SCH (10:25)
[2024-09-17] MEDS: FLURBIPROFEN 0.03% OPHTH SOLN 2.5 ML OD SCH (10:25)
[2024-09-17] MEDS: TETRACAINE 0.5% OPHTH SOLN 4ML OD SCH (10:25)
[2024-09-17] MEDS: PHENYLEPHRINE 2.5% OPHTH SOL 2ML OD SCH (10:25)
[2024-09-17] MEDS: LIDOCAINE 1% SDV 5ML VIAL As Ordered ONE (11:05)
[2024-09-17 11:28] VITALS: BP 141/82; TEMP 97.2; O2SAT 99
== END 2024-09-17 11:45 | disposition home or self-care (01) ==
LOC: M SDC 08:42
PROVIDERS: ATTEND Ophthalmology
DX: H25.11 Age-related nuclear cataract, right eye (principal); I10 Essential (primary) hypertension; E78.5 Hyperlipidemia, unspecified; E03.9 Hypothyroidism, unspecified; F41.9 Anxiety disorder, unspecified; F32.A Depression, unspecified; G47.33 Obstructive sleep apnea (adult) (pediatric); Z88.8 Allergy status to other drugs, medicaments and biological substances; Z87.891 Personal history of nicotine dependence
CPT/HCPCS: 66984; J0697; J2250; V2632